=== PATIENT | female | born 1980 | race Hispanic/Latino ===

== ENCOUNTER → 2016-11-10 | Outpatient (CLI) | payer MEDICAID ==
[~2016-11-10] MED LIST: AC500T PO; AGM875T PO; AZIT-21 PO; CIPR500T78 PO; CLIN-62 PO; DICY20TA10 PO; FRS325T PO; HYDR-1231 PO; HYDR480S10 GT; HYOS0.1216 PO; IBUP-30 PO; IBUP800T26 PO; Ibuprofen PO; METF500T4 PO; METR500T PO; MULT-974 PO; ONDA-42 SL; OSLT75C PO; PNT40TEC PO; POLY17PO23 GT; TRM50T PO
--- NOTE | 2016-11-10 13:25 | Diagnostic Imaging Report ---
First trimester OB ultrasound. INDICATION: Dating. FINDINGS: There is a normal-appearing single intrauterine . An embryo is seen with cardiac activity at 156 beats per minute. The crown-rump length is at 12 weeks and 4 days. JOHNATHAN is 05/21/17. IMPRESSION: Live single intrauterine . Dictated by: Dictated on workstation # [id number]
== END ==
LOC: RAD 11:54
PROVIDERS: ATTEND Family Medicine
DX: Z36.3 Encounter for antenatal screening for malformations (principal); Z3A.12 12 weeks gestation of pregnancy
CPT/HCPCS: 76801

== ENCOUNTER → 2016-12-29 | Outpatient (CLI) | payer MEDICAID ==
--- NOTE | 2016-12-29 15:19 | Diagnostic Imaging Report ---
INDICATION: survey. TECHNIQUE: Multiple real-time grayscale images were obtained over the gravid uterus. COMPARISON: 11/10/2016 FINDINGS: heart rate is 140 beats per minute. The placenta is posterior. No placenta previa. The cervix is 5.1 cm in length and is closed. Adequate amniotic fluid is seen. The posterior fossa, size of the ventricles, the stomach, the urinary bladder, two umbilical arteries, and the spine are demonstrated with no definite abnormality. No hydronephrosis or cystic renal masses identified. The four-chamber view and cord insertion are not well evaluated due to position. The maternal adnexa are obscured. Biometrical measurements are as follows: Biparietal 4.39 cm, age 19 weeks 2 days. Head circumference 16.06 cm, age 19 weeks 0 days. Abdominal circumference 13.88 cm, age 19 weeks 2 days. Femur length 2.92 cm, age 19 weeks 0 days. Sonographic estimate age: 19 weeks 1 days. Sonographic estimated date of delivery: 05/24/2017. Estimated Weight: 275 gm (+/- 40 gm). LMP percentile: 22%. heart rate: 140 beats per minute. number: 1 of 1. IMPRESSION: The four-chamber view and cord insertion are not well seen due to position. Reevaluation with a followup scan within 2 weeks is suggested. Dictated by: Dictated on workstation # [id number]
== END ==
LOC: RAD 12:37
PROVIDERS: ATTEND Obstetrics & Gynecology
DX: O24.112 Pre-existing type 2 diabetes mellitus, in pregnancy, second trimester (principal); Z3A.19 19 weeks gestation of pregnancy
CPT/HCPCS: 76805

== ENCOUNTER 2017-02-03 11:02 | Emergency (ER) | payer MEDICAID ==
[~2017-02-03] VITALS: Ht 160 cm; Wt 72.6 kg
--- OUTSIDE RECORDS SUMMARY | 2017-02-03 11:09 | XMS REPORT ---
Author Author CHEMA CLANCY e[employer] Address Unknown Phone Unavailable Care Team Providers Care Outdoor Studies Professor Name Role Phone CHEMA CLANCY CP Unavailable Allergies No Known Allergies Problems Problem Type Condition Code Onset Dates Condition Status Assessment Breech presentation, antepartum, not applicable or unspecified fetus O32.1XX0 Active Problem Gastro-esophageal reflux disease without esophagitis K21.9 Active Assessment Supervision of with grand multiparity, third trimester O09.43 Active Problem Supervision of with grand multiparity, third trimester O09.43 Active Problem Gestational diabetes mellitus in , unspecified control O24.419 Active Problem Breech presentation, antepartum, not applicable or unspecified fetus O32.1XX0 Active Problem Supervision of high risk , unspecified, third trimester O09.93 Active Problem Supervision of with grand multiparity, second trimester O09.42 Active Problem Anemia complicating , third trimester O99.013 Active Problem Diet controlled gestational diabetes mellitus in third trimester O24.410 Active Medications No Known Medications Results No Known Results Summary Purpose eClinicalWorks Submission
--- OUTSIDE RECORDS SUMMARY | 2017-02-03 11:09 | XMS REPORT ---
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 [address]-56 500 MG Orally- DX- E11.65 twice a day Oct 16, 2015 1 tablets Results No Known Results Summary Purpose eClinicalWorks Submission
--- OUTSIDE RECORDS SUMMARY | 2017-02-03 11:09 | XMS REPORT ---
Author CHEMA Lopez [facility] eClinicalWorks Address Unknown Phone Unavailable Care Team Providers Care Shingle Shearing Machine Operator Name Role Phone CHEMA CLANCY CP Unavailable Allergies No Known Allergies Problems Problem Type Condition Code Onset Dates Condition Status Assessment screening for streptococcus B Z36 Active Assessment Supervision of with grand multiparity, third trimester O09.43 Active Assessment Supervision of high risk , unspecified, third trimester O09.93 Active Assessment 35 weeks gestation of Z3A.35 Active Assessment Diet controlled gestational diabetes mellitus in third trimester O24.410 Active Problem Gestational diabetes mellitus in , unspecified control O24.419 Active Problem Anemia complicating , third trimester O99.013 Active Problem Supervision of with grand multiparity, third trimester O09.43 Active Problem Supervision of with grand multiparity, second trimester O09.42 Active Problem Gastro-esophageal reflux disease without esophagitis K21.9 Active Problem Diet controlled gestational diabetes mellitus in third trimester O24.410 Active Problem Supervision of high risk , unspecified, third trimester O09.93 Active Medications No Known Medications Procedures Procedure Coding System Code Date DETECT AGNT MULT, DNA, AMPLI CPT-4 82791 Jan 29, 2015 Office Visit, Est Pt., Level 3 CPT-4 16403 Jan 29, 2015 URINE-NO MICRO CPT-4 16207 Jan 29, 2015 Vital Signs Date/Time: Jan 29, 2015 Temperature 97.7 F Weight 182.7 lbs Height 63 in BMI 32.364 Index Blood Pressure Diastolic 84 mmHg Blood Pressure Systolic 130 mmHg Cardiac Monitoring Heart Rate 82 bpm Results Name Result Date Reference Range Unit Abnormality Flag UA OB DIP (IN HOUSE) ----Glucose Trace 20150129 ----Protein 2+ 20150129 CULTURE, GROUP B STREP (VAGINAL) ----Strep Gp B Culture Negative 20150129 Negative Summary Purpose eClinicalWorks Submission
--- OUTSIDE RECORDS SUMMARY | 2017-02-03 11:09 | XMS REPORT ---
Author Author TAHIRA VALDEZ Organization [employer]Works Address Unknown Phone Unavailable Care Team Providers Care Technical Buyer Name Role Phone TAHIRA VALDEZ CP Unavailable [...] Instructions Start Date End Date Status Dosage Lisinopril [facility] [address]-39 2.5 MG Orally Once a day Dec 17, 2015 1 tablet Results No Known Results Summary Purpose eClinicalWorks Submission
--- OUTSIDE RECORDS SUMMARY | 2017-02-03 11:09 | XMS REPORT ---
Author Author TAHIRA VALDEZ [facility] eClinicalWorks Address Unknown Phone Unavailable Care Team Providers Care Exhibition Designer Name Role Phone TAHIRA VALDEZ CP Unavailable Allergies, Adverse Reactions, Alerts Substance Reaction Event Type N.K.D.A. 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 Problem Type 2 diabetes mellitus without complication, without long-term current use of insulin E11.9 Active Assessment Type 2 diabetes mellitus without complication, without long-term current use of insulin E11.9 Active Assessment Hyperlipidemia LDL goal <70 E78.5 Active Problem History of gestational diabetes Z86.32 Active Problem Gastro-esophageal reflux disease without esophagitis K21.9 Active Medications Medication Code System Code Instructions Start Date End Date Status Dosage Pravastatin Sodium [facility] [address]-42 40 mg Orally Once a day June 11, 2015 1 [place] [address]-08 500 MG Orally- DX- E11.65 twice a day Oct 16, 2015 1 tablets Blood Glucose Test Strip NDC 0 Test Strips DX- E11.65- One Touch twice daily Oct 16, 2015 test blood sugar Blood Glucose Meter NDC 0 glucometer DX: E11.65- One Touch 2 times a day Nov 30, 2014 test blood sugar Procedures Procedure Coding System Code Date MICROALBUMIN, SEMIQUANT CPT-4 58005 Dec 11, 2015 Office Visit, Est Pt., Level 4 CPT-4 59006 Dec 11, 2015 GLYCATED HEMOGLOBIN TEST CPT-4 98892 Dec 11, 2015 Vital Signs Date/Time: Dec 11, 2015 Cardiac Monitoring Heart Rate 88 bpm Weight 147.1 lbs Height 63 in BMI 26.05 Index Blood Pressure Diastolic 82 mmHg Blood Pressure Systolic 124 mmHg Results Name Result Date Reference Range Unit Abnormality Flag A1C (IN HOUSE) ----A1C IN HOUSE 6.4 20151211 4.3 - 5.6 % ----Previous A1c 7.5 20151211 ----Lot [id number] ----Exp date 20151211 Summary Purpose eClinicalWorks Submission
--- OUTSIDE RECORDS SUMMARY | 2017-02-03 11:09 | XMS REPORT ---
Author CHEMA Lopez [facility] eClinicalWorks Address Unknown Phone Unavailable Care Team Providers Care Saute Chef Name Role Phone CHEMA CLANCY CP Unavailable Allergies No Known Allergies Problems Problem Type Condition Code Onset Dates Condition Status Problem Anemia complicating , third trimester O99.013 Active Problem Supervision of with grand multiparity, second trimester O09.42 Active Problem Gestational diabetes mellitus in , unspecified control O24.419 Active Problem Gastro-esophageal reflux disease without esophagitis K21.9 Active Medications Medication Code System Code Instructions Start Date End Date Status Dosage Ferrous Sulfate [facility] [address]-63 325 (65 Fe) MG Orally Once a day Nov 15, 2014 1 tablet Results No Known Results Summary Purpose eClinicalWorks Submission
--- OUTSIDE RECORDS SUMMARY | 2017-02-03 11:09 | XMS REPORT ---
Author CHEMA Lopez [facility] eClinicalWorks Address Unknown Phone Unavailable Care Team Providers Care Maintenance Department Technician Name Role Phone CHEMA CLANCY CP Unavailable Allergies No Known Allergies Problems Problem Type Condition Code Onset Dates Condition Status Problem Anemia complicating , third trimester O99.013 Active Problem Supervision of with grand multiparity, second trimester O09.42 Active Problem Gestational diabetes mellitus in , unspecified control O24.419 Active Problem Gastro-esophageal reflux disease without esophagitis K21.9 Active Medications No Known Medications Results No Known Results Summary Purpose eClinicalWorks Submission
--- OUTSIDE RECORDS SUMMARY | 2017-02-03 11:09 | XMS REPORT ---
Author CHEMA Lopez [facility] eClinicalWorks Address Unknown Phone Unavailable Care Team Providers Care Fashion Designer Name Role Phone CHEMA CLANCY CP Unavailable Allergies No Known Allergies Problems Problem Type Condition Code Onset Dates Condition Status Assessment Supervision of with grand multiparity, third trimester O09.43 Active Assessment 31 weeks gestation of Z3A.31 Active Assessment Encounter for immunization Z23 Active Assessment Diet controlled gestational diabetes mellitus [...] Medications Procedures Procedure Coding System Code Date Office Visit, Est Pt., Level 3 CPT-4 84321 Jan 01, 2015 TDAP (BOOSTRIX) CPT-4 88153 Jan 01, 2015 URINE-NO MICRO CPT-4 99116 Jan 01, 2015 SINGLE IMMUNIZATION ADMIN CPT-4 74605 Jan 01, 2015 Vital Signs Date/Time: Jan 01, 2015 Temperature 97.7 F Weight 177.2 lbs Height 63 in BMI 31.39 Index Blood Pressure Diastolic 82 mmHg Blood Pressure Systolic 120 mmHg Cardiac Monitoring Heart Rate 82 bpm Results Name Result Date Reference Range Unit Abnormality Flag UA OB DIP (IN HOUSE) ----Glucose negative 20150101 ----Protein trace 20150101 Immunizations Vaccine Administration Date TDAP (BOOSTRIX) Jan 01, 2015 Summary Purpose eClinicalWorks Submission
--- OUTSIDE RECORDS SUMMARY | 2017-02-03 11:09 | XMS REPORT | Clinical Summary ---
Author Author [facility] Organization [facility] Address Unknown Phone Unavailable Care Team Providers Care Harvest Worker Fruit Name Role Phone PCP Unavailable Source Comments Some departments are not documenting in the electronic medical record. If you do not see the information that you expected, contact Release of Information in the Health Information Management department at [phone] for further assistance in locating additional records.[facility] Allergies No Known Allergies Current Medications No known medications Active Problems Problem Noted Date Normal 09/21/2008 Family History Medical History Relation Name Comments Diabetes Mother Relation Name Status Comments Mother Social History Tobacco Use Types Packs/Day Years Used Date Never Smoker Smokeless Tobacco: Never Used Alcohol Use Drinks/Week oz/Week Comments No Currently Estimated Date of Delivery Comments Yes Sex Assigned at Date Recorded Not on file Last Filed Vital Signs Vital Sign Reading Time Taken Blood Pressure 125/58 09/16/2011 2:08 AM CDT Pulse 80 01/11/2010 12:32 AM ASSEMBLY PERSON Temperature 36.6 C (97.8 F) 01/11/2010 12:32 AM ASSEMBLY PERSON Respiratory Rate - - Oxygen Saturation 98% 09/16/2011 2:08 AM CDT Inhaled Oxygen - - Concentration Weight 69.4 kg (153 lb) 01/07/2010 12:09 AM ASSEMBLY PERSON Height 162.6 cm (5' 4") 09/19/2008 9:50 PM CDT Body Mass Index 26.26 01/07/2010 12:09 AM ASSEMBLY PERSON Plan of Treatment Health Maintenance Due Date Last Done Comments PHYSICAL (COMPREHENSIVE) 1987 EXAM PERTUSSIS VACCINE 1991 TETANUS VACCINE 1997 CERVICAL CANCER SCREENING 2010 INFLUENZA VACCINE 09/09/2016 Results Not on filefrom Last 3 Months
--- OUTSIDE RECORDS SUMMARY | 2017-02-03 11:10 | XMS REPORT ---
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 854305979 Problem Gastro-esophageal reflux disease without esophagitis K21.9 Active 261834592 ALLERGIES No Information SOCIAL HISTORY Never Assessed PLAN OF CARE VITAL SIGNS MEDICATIONS Unknown Medications RESULTS No Results PROCEDURES Procedure Date Ordered Result Body Site TDAP (BOOSTRIX) 2016 SINGLE IMMUNIZATION ADMIN 2016 IMMUNIZATIONS Vaccine Route Administration Date Status TDAP (BOOSTRIX) IM Intramuscular 2016 Administered MEDICAL (GENERAL) HISTORY Type Description Date Medical History Type 2 diabetes mellitus with hyperglycemia Medical History History of gestational diabetes Medical History Gastro-esophageal reflux disease without esophagitis Medical History Castlemans disease 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
--- OUTSIDE RECORDS SUMMARY | 2017-02-03 11:10 | XMS REPORT ---
Author Author TAHIRA VALDEZ [facility] Address [address] [place] [address] Care Team Providers Care Insurance Verification Representative Name Role Phone TAHIRA VALDEZ Unavailable PROBLEMS Type Condition ICD9-CM Code [id number] Code Onset Dates Condition Status SNOMED Code Problem Hyperlipidemia LDL goal <70 E78.5 Active 90231891 Problem Type 2 diabetes mellitus without complication, without long-term current use of insulin E11.9 Active 413964150 Problem Gastro-esophageal reflux disease without esophagitis K21.9 Active 028368751 Problem History of gestational diabetes Z86.32 Active 546186141 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
--- OUTSIDE RECORDS SUMMARY | 2017-02-03 11:10 | XMS REPORT ---
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
--- OUTSIDE RECORDS SUMMARY | 2017-02-03 11:10 | XMS REPORT ---
Author Author TAHIRA VALDEZ Organization eClinicalWorks Address Unknown Phone Unavailable Care Team Providers Care Economic Analysis Director Name Role Phone TAHIRA VALDEZ CP Unavailable [...] esophagitis K21.9 Active Medications No Known Medications Procedures Procedure Coding System Code Date VENIPUNCT, ROUTINE* CPT-4 03267 Dec 14, 2015 [facility] CPT-4 NOBLL Dec 14, 2015 Results Name Result Date Reference Range Unit Abnormality Flag ROUTINE VENIPUNCTURE Summary Purpose eClinicalWorks Submission
--- OUTSIDE RECORDS SUMMARY | 2017-02-03 11:10 | XMS REPORT ---
Author CHEMA Lopez [facility] eClinicalWorks Address Unknown Phone Unavailable Care Team Providers Care Template Clerk Name Role Phone CHEMA CLANCY CP Unavailable [...] Instructions Start Date End Date Status Dosage Blood Glucose Meter NDC 0 glucometer 4 times a day- FBS and 2 hr pp each meal Nov 30, 2014 test blood sugar Results No Known Results Summary Purpose eClinicalWorks Submission
--- OUTSIDE RECORDS SUMMARY | 2017-02-03 11:10 | XMS REPORT ---
Author CHEMA Lopez [facility] eClinicalWorks Address Unknown Phone Unavailable Care Team Providers Care Contracting Officer Name Role Phone CHEMA CLANCY CP Unavailable [...]
--- OUTSIDE RECORDS SUMMARY | 2017-02-03 11:10 | XMS REPORT ---
Author CHEMA Lopez [facility] eClinicalWorks Address Unknown Phone Unavailable Care Team Providers Care Gas Leak Inspector Name Role Phone CHEMA CLANCY CP Unavailable Allergies No Known Allergies Problems Problem Type Condition Code Onset Dates Condition Status Problem Anemia complicating , third trimester O99.013 Active Problem Supervision of with grand multiparity, second trimester O09.42 Active Problem Gestational diabetes mellitus in , unspecified control O24.419 Active Assessment Anemia complicating , third trimester O99.013 Active Problem Gastro-esophageal reflux disease without esophagitis K21.9 Active Assessment Gestational diabetes mellitus in , unspecified control O24.419 Active Medications No Known Medications Results No Known Results Summary Purpose eClinicalWorks Submission
--- OUTSIDE RECORDS SUMMARY | 2017-02-03 11:10 | XMS REPORT ---
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 839017588 Problem Gastro-esophageal reflux disease without esophagitis K21.9 Active 500267038 ALLERGIES No Information SOCIAL HISTORY Never Assessed PLAN OF CARE VITAL SIGNS MEDICATIONS Medication Instructions Dosage Frequency Start Date End Date Duration Status MetFORMIN HCl ER 500 mg Orally- DX- E11.65 twice a day 2 tablets 12h 06 Oct Active RESULTS No Results PROCEDURES No Known procedures IMMUNIZATIONS No Known Immunizations MEDICAL (GENERAL) HISTORY Type Description Date Medical History Type 2 diabetes mellitus with hyperglycemia Medical History History of gestational diabetes Medical History Gastro-esophageal reflux disease without esophagitis Medical History Castlemans disease 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
--- OUTSIDE RECORDS SUMMARY | 2017-02-03 11:10 | XMS REPORT ---
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
--- OUTSIDE RECORDS SUMMARY | 2017-02-03 11:10 | XMS REPORT ---
Author Author ERICA TORREZ eClinicalWorks Address Unknown Phone Unavailable Care Team Providers Care Auto Hauler Name Role Phone ERICA TORREZ CP Unavailable Allergies, Adverse Reactions, Alerts Substance Reaction Event Type N.K.D.A. 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 Assessment Type 2 diabetes mellitus with hyperglycemia E11.65 Active Problem Gastro-esophageal reflux disease without esophagitis K21.9 Active Assessment History of gestational diabetes Z86.32 Active Medications Medication Code System Code Instructions Start Date End Date Status Dosage MetFORMIN HCl ER [facility] [address]-51 500 MG Orally Once a day June 07, 2015 1 tablet with evening meal Blood Glucose Meter NDC 0 glucometer 4 times a day- FBS and 2 hr pp each meal Nov 30, 2014 test blood sugar Procedures Procedure Coding System Code Date LAB NOT BILLED BY [facility] CPT-4 NOBLL June 07, 2015 Office Visit, Est Pt., Level 3 CPT-4 29406 June 07, 2015 GLYCATED HEMOGLOBIN TEST CPT-4 85535 June 07, 2015 VENIPUNCT, ROUTINE* CPT-4 06329 June 07, 2015 Vital Signs Date/Time: June 07, 2015 Temperature 97.8 F Weight 166.0 lbs Height 63 in BMI 29.40 Index Blood Pressure Diastolic 86 mmHg Blood Pressure Systolic 121 mmHg Cardiac Monitoring Heart Rate 88 bpm Results No Known Results Summary Purpose eClinicalWorks Submission
--- OUTSIDE RECORDS SUMMARY | 2017-02-03 11:10 | XMS REPORT ---
Author Author TAHIRA VALDEZ [facility] eClinicalWorks Address Unknown Phone Unavailable Care Team Providers Care Youth Agent Name Role Phone TAHIRA VALDEZ CP Unavailable Allergies, Adverse Reactions, Alerts Substance Reaction Event Type N.K.D.A. 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 [address] 28-0.8 MG Orally not defined Diflucan [facility] [address]-34 100 MG Orally Once a day Sep 18, 2015 Sep 25, 2015 1 tablet Blood Glucose Meter NDC 0 glucometer 4 times a day- FBS and 2 hr pp each meal Nov 30, 2014 test blood sugar Procedures Procedure Coding System Code Date No Charge CPT-4 70982 Sep 18, 2015 OBANDO VAG, DNA, DIR PROBE CPT-4 97471 Sep 18, 2015 URINE TEST CPT-4 99516 Sep 18, 2015 Office Visit, Est Pt., Level 4 CPT-4 16456 Sep 18, 2015 [facility] CPT-4 NOBLL Sep 18, 2015 Vital Signs Date/Time: Sep 18, 2015 Cardiac Monitoring Heart Rate 94 bpm Weight 155.6 lbs Height 63 in BMI 27.56 Index Blood Pressure Diastolic 88 mmHg Blood Pressure Systolic 130 mmHg Results No Known Results Summary Purpose eClinicalWorks Submission
--- OUTSIDE RECORDS SUMMARY | 2017-02-03 11:10 | XMS REPORT ---
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
--- OUTSIDE RECORDS SUMMARY | 2017-02-03 11:10 | XMS REPORT ---
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 Problem Gastro-esophageal reflux disease without esophagitis K21.9 Active Assessment Elevated ALT measurement R74.0 Active Medications No Known Medications Procedures Procedure Coding System Code Date VENIPUNCT, ROUTINE* CPT-4 29940 June 11, 2015 [facility] CPT-4 NOBLL June 11, 2015 Results Name Result Date Reference Range Unit Abnormality Flag ROUTINE VENIPUNCTURE HEPATITIS PROFILE ----Hep C Virus Ab <0.1 [id number] 0.0-0.9 s/co ratio ----HBsAg Screen Negative [id number] Negative ----Hep B Core Ab, IgM Negative [id number] Negative ----Hep A Ab, IgM Negative [id number] Negative Summary Purpose eClinicalWorks Submission
--- OUTSIDE RECORDS SUMMARY | 2017-02-03 11:10 | XMS REPORT ---
Author CHEMA Lopez eClinicalWorks Address Unknown Phone Unavailable Care Team Providers Care Kennel Supervisor Name Role Phone CHEMA CLANCY CP Unavailable Allergies, Adverse Reactions, Alerts Substance Reaction Event Type N.K.D.A. Info Not Available Non Drug Allergy Problems Problem Type Condition Code Onset Dates Condition Status Assessment 28 weeks gestation of Z3A.28 Active Assessment Diet controlled gestational diabetes mellitus in third trimester O24.410 Active Assessment Supervision of high risk , unspecified, third trimester O09.93 Active Problem Anemia complicating , third trimester O99.013 Active Problem Diet controlled gestational diabetes mellitus in third trimester O24.410 Active Problem Gestational diabetes mellitus in , unspecified control O24.419 Active Problem Gastro-esophageal reflux disease without esophagitis K21.9 Active Assessment Supervision of with grand multiparity, second trimester O09.42 Active Problem Supervision of high risk , unspecified, third trimester O09.93 Active Problem Supervision of with grand multiparity, second trimester O09.42 Active Medications No Known Medications Procedures Procedure Coding System Code Date Office Visit, Est Pt., Level 3 CPT-4 71275 Dec 11, 2014 URINE-NO MICRO CPT-4 40880 Dec 11, 2014 Vital Signs Date/Time: Dec 11, 2014 Temperature 98.2 F Weight 174.5 lbs Height 63 in BMI 30.911 Index Blood Pressure Diastolic 78 mmHg Blood Pressure Systolic 122 mmHg Cardiac Monitoring Heart Rate 88 bpm Results Name Result Date Reference Range Unit Abnormality Flag UA OB DIP (IN HOUSE) Summary Purpose eClinicalWorks Submission
--- OUTSIDE RECORDS SUMMARY | 2017-02-03 11:10 | XMS REPORT ---
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
--- OUTSIDE RECORDS SUMMARY | 2017-02-03 11:10 | XMS REPORT ---
Author CHEMA Lopez [facility] eClinicalWorks Address Unknown Phone Unavailable Care Team Providers Care Airport Ramp Attendant Name Role Phone CHEMA CLANCY CP Unavailable Allergies No Known Allergies Problems Problem Type Condition Code Onset Dates Condition Status Problem Gastro-esophageal reflux disease without esophagitis K21.9 Active Assessment Supervision of with grand multiparity, second trimester O09.42 Active Problem Supervision of with grand multiparity, second trimester O09.42 Active Assessment with 24 completed weeks gestation Z3A.24 Active Assessment Shortness of breath R06.02 Active Assessment Encounter for immunization Z23 Active Assessment Gastro-esophageal reflux disease without esophagitis K21.9 Active Medications Medication Code System Code Instructions Start Date End Date Status Dosage One Daily [facility] [address]95 27-0.8 MG Orally not defined Prilosec [facility] [address]-59 40 MG Orally Once a day Nov 13, 2014 1 capsule Procedures Procedure Coding System Code Date MEASURE BLOOD OXYGEN LEVEL CPT-4 29209 Nov 13, 2014 FLUARIX QUAD (3 & UP)-GSK-2014 CPT-4 33015 Nov 13, 2014 URINE-NO MICRO CPT-4 11736 Nov 13, 2014 Office Visit, Est Pt., Level 3 CPT-4 33277 Nov 13, 2014 GLUCOSE TEST CPT-4 85704 Nov 13, 2014 SINGLE IMMUNIZATION ADMIN CPT-4 66633 Nov 13, 2014 VENIPUNCT, ROUTINE* CPT-4 21964 Nov 13, 2014 COMPLETE CBC W/AUTO DIFF WBC CPT-4 54654 Nov 13, 2014 Vital Signs Date/Time: Nov 13, 2014 Temperature 98.2 F Weight 174.0 lbs Height 63 in Oximetry 100 % Blood Pressure Diastolic 88 mmHg Blood Pressure Systolic 126 mmHg Cardiac Monitoring Heart Rate 102 bpm BMI 30.823 Index Results Name Result Date Reference Range Unit Abnormality Flag ROUTINE VENIPUNCTURE UA OB DIP (IN HOUSE) Immunizations Vaccine Administration Date FLUARIX QUAD (3 & UP)-GSK-2014Nov 13, 2014 Summary Purpose eClinicalWorks Submission
--- OUTSIDE RECORDS SUMMARY | 2017-02-03 11:10 | XMS REPORT ---
Author Author ERICA TORREZ [facility] eClinicalWorks Address Unknown Phone Unavailable Care Team Providers Care Bill Adjuster Name Role Phone ERICA TORREZ Unavailable Allergies [...]
--- OUTSIDE RECORDS SUMMARY | 2017-02-03 11:11 | XMS REPORT | Continuity of Care Document ---
Author Author [facility] Address Unknown Phone Unavailable Allergies Active Description Code Type Severity Reaction Onset Reported/Identified Relationship to Patient Clinical Status Yes No Known Drug Allergies [id number] Drug Allergy Unknown N/A 09/30/2015 Medications There is no data. Problems Date Dx Coded Attending Type Code Diagnosis Diagnosed By 01/25/2013 MICHAELA LIU APRN Ot 640.03 THREATEN ABORT-ANTEPART 01/25/2013 MICHAELA LIU APRN Ot 789.00 ABDOMINAL PAIN, UNSPECIFIED SITE 03/06/2013 CHEMA CLANCY DO Ot 038.9 SEPTICEMIA NOS 03/06/2013 CHEMA CLANCY DO Ot 276.1 HYPOSMOLALITY 03/06/2013 CHEMA CLANCY DO Ot 276.8 HYPOPOTASSEMIA 03/06/2013 CHEMA CLANCY DO Ot 487.0 INFLUENZA WITH PNEUMONIA 03/06/2013 CHEMA CLANCY DO Ot 634.02 SPON ABOR W PEL INF-COMP 03/06/2013 CHEMA CLANCY DO Ot 641.13 PLACEN PREV HEM-ANTEPART 03/06/2013 CHEMA CLANCY DO Ot 646.83 PREG COMPL NEC-ANTEPART 03/06/2013 CHEMA CLANCY DO Ot 659.33 SEPTICEM IN LABOR-ANTEPA 03/06/2013 CHEMA CLANCY DO Ot 995.91 SEPSIS 03/12/2013 ANNE SUTHERLAND, NEELAM Swenson Ot 789.09 ABDOMINAL PAIN, OTHER SPECIFIED SITE 03/31/2013 VALENTINO MILLER APRN V72.41 TEST NEGATIVE RESULT 03/31/2013 FARZANA ANDERSON APRN V72.41 TEST NEGATIVE RESULT 03/31/2013 FARZAAN ANDERSON APRN V72.41 TEST NEGATIVE RESULT 03/31/2013 CATHERINE SIU APRN V72.41 TEST NEGATIVE RESULT 05/31/2013 MONICA REFINERY OPERATOR ALKYLATION, FARZANA R 793.11 SOLITARY PULMONARY NODULE 05/31/2013 FARZANA ANDERSON APRN R 793.11 SOLITARY PULMONARY NODULE 05/31/2013 CATHERINE SIU APRN N 793.11 SOLITARY PULMONARY NODULE 06/02/2013 FARZANA ANDERSON APRN R 786.52 CHEST WALL PAIN 06/02/2013 FARZANA ANDERSON APRN R 786.52 CHEST WALL PAIN 06/02/2013 CATHERINE SIU APRN N 786.52 CHEST WALL PAIN 06/15/2013 ANNE SUTHERLAND, NEELAM Swenson Ot 786.05 SHORTNESS OF BREATH 06/15/2013 ANNE SUTHERLAND, NEELAM Swenson Ot 787.02 NAUSEA ALONE 06/15/2013 ANNE SUTHERLAND, NEELAM Swenson Ot 789.00 ABDOMINAL PAIN, UNSPECIFIED SITE 09/12/2013 EMI SWANSON DO Ot 490 BRONCHITIS NOS 09/12/2013 EMI SWANSON DO Ot 786.2 COUGH 09/29/2013 EMI GUAN DO Ot 038.9 SEPTICEMIA NOS 09/29/2013 EMI GUAN DO Ot 041.09 BACTERIAL INFECTION DUE TO OTHER STREPTO 09/29/2013 EMI GUAN DO Ot 280.0 CHR BLOOD LOSS ANEMIA 09/29/2013 EMI GUAN DO Ot 599.0 URIN TRACT INFECTION NOS 09/29/2013 EMI GUAN DO Ot 626.2 EXCESSIVE MENSTRUATION 09/29/2013 EMI GUAN DO Ot 780.60 FEVER, UNSPECIFIED 09/29/2013 EMI GUAN DO Ot 785.2 CARDIAC MURMURS NEC 09/29/2013 EMI GUAN DO Ot 785.6 ENLARGEMENT LYMPH NODES 09/29/2013 EMI GUAN DO Ot 786.2 COUGH 09/29/2013 EMI GUAN DO Ot 786.52 PAINFUL RESPIRATION 09/29/2013 EMI GUAN DO Ot 995.91 SEPSIS 09/29/2013 EMI GUAN DO Ot V15.82 HISTORY OF TOBACCO USE 11/09/2013 SUE GARCIA Ot 516.0 PUL ALVEOLAR PROTEINOSIS 01/02/2014 FARZANA ANDERSON APRN R 790.29 HYPERGLYCEMIA 01/02/2014 CATHERINE SIU APRN N 790.29 HYPERGLYCEMIA 01/10/2014 CATHERINE SIU APRN N 784.1 THROAT PAIN 01/10/2014 NEHEMIAH CONDE APRN, CATHERINE N 786.2 COUGH 03/15/2014 SUE GARCIA N Ot 785.6 ENLARGEMENT LYMPH NODES 03/16/2014 HARJEET DEE ENGINEERING INSPECTOR Ot 785.6 04/10/2014 Ot 789.01 ABDOMINAL PAIN, RIGHT UPPER QUADRANT 05/01/2014 JOSE SUE N Ot 785.6 10/13/2014 FOREST ANDERSONINA R REFINERY OPERATOR ALKYLATION Ot 571.8 10/13/2014 MONICA FARZANA R REFINERY OPERATOR ALKYLATION Ot 786.52 10/13/2014 MONICA FARZANA R REFINERY OPERATOR ALKYLATION Ot 786.6 10/13/2014 MONICA FARZANA R REFINERY OPERATOR ALKYLATION Ot 793.11 10/13/2014 JOSESUE MAYO N Ot 785.6 10/13/2014 JOSE SUE N Ot 789.1 10/13/2014 EMI GUAN DO Ot 280.9 10/13/2014 SUE GARCIA N Ot 785.6 10/13/2014 HARJEET DEE ENGINEERING INSPECTOR Ot 785.6 11/20/2014 FOREST ANDERSONINA R REFINERY OPERATOR ALKYLATION Ot 571.8 11/20/2014 FARZANA ANDERSON R REFINERY OPERATOR ALKYLATION Ot 786.52 11/20/2014 FARZANA ANDERSON R REFINERY OPERATOR ALKYLATION Ot 786.6 11/20/2014 FARZANA ANDERSON R REFINERY OPERATOR ALKYLATION Ot 793.11 11/20/2014 SUE GARCIA N Ot 785.6 11/20/2014 SUE GARCIA N Ot 789.1 11/20/2014 EMI GUAN DO Ot 280.9 11/20/2014 JOSE BOBVADIM N Ot 785.6 11/20/2014 HARJEET DEE ENGINEERING INSPECTOR Ot 785.6 11/20/2014 VALENTINO MILLER REFINERY OPERATOR ALKYLATION Ot V23.3 12/27/2014 CHEMA CLANCY DO Ot O09.42 12/27/2014 CLANCY CHEMA KNIGHT Ot Z3A.00 09/30/2015 FARZANA ANDERSON R REFINERY OPERATOR ALKYLATION Ot 571.8 CHRONIC LIVER DIS NEC 09/30/2015 FARZANA ANDERSON R REFINERY OPERATOR ALKYLATION Ot 786.52 PAINFUL RESPIRATION 09/30/2015 FARZANA ANDERSON REFINERY OPERATOR ALKYLATION Ot 786.6 CHEST SWELLING/MASS/LUMP 09/30/2015 FARZANA ANDERSON REFINERY OPERATOR ALKYLATION Ot 793.11 SOLITARY PULMONARY NODULE 09/30/2015 JOSESUE Ot 785.6 ENLARGEMENT LYMPH NODES 09/30/2015 SUE GARCIA Ot 789.1 HEPATOMEGALY 09/30/2015 EMI GUAN DO Ot 280.9 IRON DEFIC ANEMIA NOS 09/30/2015 SUE GARCIA Ot 785.6 ENLARGEMENT LYMPH NODES 09/30/2015 HARJEET DEE ENGINEERING INSPECTOR Ot 785.6 ENLARGEMENT LYMPH NODES 09/30/2015 VALENTINO MILLER REFINERY OPERATOR ALKYLATION Ot V23.3 GRAND MULTIPARITY 09/30/2015 CHEAM CLANCY DO Ot O09.42 SUPRVSN OF W GRAND MULTIPARITY 09/30/2015 CHEMA CLANCY DO Ot Z3A.00 WEEKS OF GESTATION OF NOT SPEC 09/30/2015 HARJEET DEE ENGINEERING INSPECTOR Ot 785.6 ENLARGEMENT LYMPH NODES 09/30/2015 HUGO GUERRERO MD Ot E11.9 TYPE 2 DIABETES MELLITUS WITHOUT COMPLIC 09/30/2015 HUGO GUERRERO MD Ot R10.11 RIGHT UPPER QUADRANT PAIN 09/30/2015 HUGO GUERRERO MD Ot R10.31 RIGHT LOWER QUADRANT PAIN 09/30/2015 HUGO GUERRERO MD Ot R10.9 UNSPECIFIED ABDOMINAL PAIN 09/30/2015 HUGO GUERRERO MD Ot Z79.899 OTHER CUSTODIAL (CURRENT) DRUG THERAPY 10/02/2015 HUGO GUERRERO MD Ot E11.9 TYPE 2 DIABETES MELLITUS WITHOUT COMPLIC 10/02/2015 HUGO GUERRERO MD Ot R10.11 RIGHT UPPER QUADRANT PAIN 10/02/2015 HUGO GUERRERO MD Ot R10.31 RIGHT LOWER QUADRANT PAIN 10/02/2015 HUGO GUERRERO MD Ot R10.9 UNSPECIFIED ABDOMINAL PAIN 10/02/2015 HUGO GUERRERO MD Ot Z79.899 OTHER PERINATAL INSTRUCTOR (CURRENT) DRUG THERAPY 12/02/2016 SUZANNE DANIEL MD Ot Z36.3 ENCOUNTER FOR SCREENING FOR MA 12/02/2016 GAULT MD, SUZANNE R Ot Z3A.12 12 WEEKS GESTATION OF 01/04/2017 ASHLYN BOSCH DO Ot O24.112 PRE-EXISTING TYPE 2 DIABETES, IN PREGNAN 01/04/2017 ASHLYN BOSCH DO Ot Z3A.19 19 WEEKS GESTATION OF 01/15/2017 ASHLYN BOSCH DO Ot O24.112 PRE-EXISTING TYPE 2 DIABETES, IN PREGNAN 01/15/2017 ASHLYN BOSCH DO Ot Z3A.19 19 WEEKS GESTATION OF Procedures Code Description [place] [address] TEST, URINE (IN- HOUSE) 03/31/2013 17499 ROUTINE VENIPUNCTURE 06/07/2013 GENERAL S JOHN MCKINNON 06/07/2013 MEDICAL O SUE GARCIA 06/07/2013 72483 LDH 06/07/2013 16615 HCG QUANTITATIVE 06/07/2013 68364 AFP TUMOR MARKER 06/08/2013 69.09 09/28/2013 28462 ROUTINE VENIPUNCTURE 01/03/2014 94596 GLUCOSE FINGER STICK 01/03/2014 47132 A1C (RML) 01/03/2014 34821 INSULIN LEVEL 01/04/2014 Results Test Result Range Urine beta human chorionic gonadotropin (hCG) measurement - 09/30/15 18:10 Urine beta human chorionic gonadotropin (hCG) measurement NEGATIVE NEGATIVE Capillary blood glucose measurement by glucometer (mass/volume) - 09/30/15 18: 19 Capillary blood glucose measurement by glucometer (mass/volume) 183 mg/dL 70-110 Complete blood count (CBC) with automated white blood cell (WBC) differential - 09/30/15 18:35 Blood leukocytes automated count (number/volume) 6.1 10*3/uL 4.3-11.0 Blood erythrocytes automated count (number/volume) 4.63 10*6/uL 4.35-5.85 Venous blood hemoglobin measurement (mass/volume) 12.8 g/dL 11.5-16.0 Blood hematocrit (volume fraction) 37 % 35-52 Automated erythrocyte mean corpuscular volume 80 [foz_us] 80-99 Automated erythrocyte mean corpuscular hemoglobin (mass per erythrocyte) 28 pg 25-34 Automated erythrocyte mean corpuscular hemoglobin concentration measurement ( mass/volume) 35 g/dL 32-36 Automated erythrocyte distribution width ratio 13.9 % 10.0-14.5 Automated blood platelet count (count/volume) 293 10*3/uL 130-400 Automated blood platelet mean volume measurement 10.0 [foz_us] 7.4-10.4 Automated blood neutrophils/100 leukocytes 65 % 42-75 Automated blood lymphocytes/100 leukocytes 26 % 12-44 Blood monocytes/100 leukocytes 7 % 0-12 Automated blood eosinophils/100 leukocytes 2 % 0-10 Automated blood basophils/100 leukocytes 0 % 0-10 Blood neutrophils automated count (number/volume) 4.0 10*3 1.8-7.8 Blood lymphocytes automated count (number/volume) 1.6 10*3 1.0-4.0 Blood monocytes automated count (number/volume) 0.4 10*3 0.0-1.0 Automated eosinophil count 0.1 10*3/uL 0.0-0.3 Automated blood basophil count (count/volume) 0.0 10*3/uL 0.0-0.1 Comprehensive metabolic panel - 09/30/15 18:35 Serum or plasma sodium measurement (moles/volume) 137 mmol/L 135-145 Serum or plasma potassium measurement (moles/volume) 3.5 mmol/L 3.6-5.0 Serum or plasma chloride measurement (moles/volume) 103 mmol/L 98-107 Carbon dioxide 24 mmol/L 21-32 Serum or plasma anion gap determination (moles/volume) 10 mmol/L 5-14 Serum or plasma urea nitrogen measurement (mass/volume) 13 mg/dL 7-18 Serum or plasma creatinine measurement (mass/volume) 0.79 mg/dL 0.60-1.30 Serum or plasma urea nitrogen/creatinine mass ratio 16 NRG Serum or plasma creatinine measurement with calculation of estimated glomerular filtration rate > NRG Serum or plasma glucose measurement (mass/volume) 187 mg/dL 70-105 Serum or plasma calcium measurement (mass/volume) 9.4 mg/dL 8.5-10.1 Serum or plasma total bilirubin measurement (mass/volume) 0.4 mg/dL 0.1-1.0 Serum or plasma alkaline phosphatase measurement (enzymatic activity/volume) 74 U/L 40-136 Serum or plasma aspartate aminotransferase measurement (enzymatic activity/ volume) 34 U/L 5-34 Serum or plasma alanine aminotransferase measurement (enzymatic activity/volume ) 82 U/L 0-55 Serum or plasma protein measurement (mass/volume) 7.4 g/dL 6.4-8.2 Serum or plasma albumin measurement (mass/volume) 4.3 g/dL 3.2-4.5 Serum or plasma amylase measurement (enzymatic activity/volume) - 09/30/15 18: 35 Serum or plasma amylase measurement (enzymatic activity/volume) 55 U /L 25-125 Lipase - 09/30/15 18:35 Lipase 26 U/L 8-78 Complete urinalysis with reflex to culture - 09/30/15 19:55 Urine color determination YELLOW NRG Urine clarity determination CLEAR NRG Urine pH measurement by test strip 6.5 5-9 Specific gravity of urine by test strip 1.020 1.016- 1.022 Urine protein assay by test strip, semi-quantitative 2+ NEGATIVE Urine glucose detection by automated test strip 1+ NEGATIVE Erythrocytes detection in urine sediment by light microscopy 4+ NEGATIVE Urine ketones detection by automated test strip 1+ NEGATIVE Urine nitrite detection by test strip NEGATIVE NEGATIVE Urine total bilirubin detection by test strip NEGATIVE NEGATIVE Urine urobilinogen measurement by automated test strip (mass/volume) 1 mg/dL NORMAL Urine leukocyte esterase detection by dipstick NEGATIVE NEGATIVE Automated urine sediment erythrocyte count by microscopy (number/high power field) [HPF] NRG Automated urine sediment leukocyte count by microscopy (number/high power field ) RARE NRG Bacteria detection in urine sediment by light microscopy NEGATIVE NRG Squamous epithelial cells detection in urine sediment by light microscopy 2-5 NRG Crystals detection in urine sediment by light microscopy NONE NRG Casts detection in urine sediment by light microscopy NONE NRG Mucus detection in urine sediment by light microscopy LARGE NRG Complete urinalysis with reflex to culture NO NRG Encounters ACCT No. Visit Date/Time Discharge Status Pt. Type Provider Facility Loc./Unit Complaint [id number] 01/10/2014 08:50:00 01/10/2014 23:59:59 CLS Outpatient CATHERINE SIU APRN [id number] 06/07/2013 09:54:00 06/07/2013 23:59:59 CLS Outpatient FARZANA ANDERSON APRN [id number] 05/31/2013 10:15:00 05/31/2013 23:59:59 CLS Outpatient FARZANA ANDERSON APRN [id number] 03/31/2013 13:49:00 03/31/2013 23:59:59 CLS Outpatient VALENTINO MILLER APRN [id number] 12/29/2016 12:37:00 12/29/2016 23:59:59 CLS Outpatient ASHLYN BOSCH DO [facility] RAD O24.112 PRE EXISTING TYPE 2 DIABETES, SUVEY [id number] 11/10/2016 11:54:00 11/10/2016 23:59:59 CLS Outpatient SUZANNE DANIEL MD [facility] RAD Z34.80 [id number] 09/30/2015 18:01:00 09/30/2015 20:27:00 DIS Emergency HUGO GUERRERO MD [facility] ER R SIDE ABD PAIN [id number] 11/20/2014 12:46:00 11/20/2014 23:59:59 CLS Outpatient JULIETH CHEMA KNIGHT [facility] RAD SURVEY [id number] 10/13/2014 13:31:00 10/13/2014 23:59:59 CLS Outpatient VALENTINO MILLER APRN [facility] RAD SURVEY [id number] 03/16/2014 00:26:00 03/16/2014 23:59:59 CLS Preadmit HARJEET DEE ENGINEERING INSPECTOR [facility] ONC [id number] 12/15/2013 08:56:00 03/15/2014 00:01:00 DIS Outpatient SUE GARCIA [facility] ONC [id number] 12/09/2013 08:51:00 12/09/2013 23:59:59 CLS Outpatient SUE GARCIA [facility] RAD CATTLEMAN'S DI [id number] 08/11/2013 13:12:00 11/09/2013 00:01:00 DIS Outpatient SUE GARCIA [facility] ONC [id number] 10/29/2013 10:06:00 10/29/2013 23:59:59 CLS Outpatient EMI GUAN DO [facility] LAB IRON DEFICIENCY ANEMIA [id number] 09/27/2013 02:22:00 09/29/2013 12:57:00 DIS Inpatient EMI GUAN DO [facility] ICU PNEUMONIA,ANEMIA; MENORRHAGIA; ENDOMETRIAL THICKEN [id number] 09/12/2013 07:29:00 09/12/2013 08:40:00 DIS Emergency EMI SWANSON DO [facility] ER COUGH [id number] 08/05/2013 08:09:00 08/05/2013 23:59:59 CLS Outpatient SUE GARCIA [facility] RAD CASTLEMAN'S DISEASE [id number] 06/15/2013 09:17:00 06/15/2013 12:20:00 DIS Emergency ANNE SUTHERLAND, NEELAM Swenson [facility] ER SOA [id number] 06/03/2013 12:31:00 06/03/2013 23:59:59 CLS Outpatient FARZANA ANDERSON APRN [facility] RAD SOLITARY PULMONARY NODULE,CHEST WALL PAIN [id number] 03/11/2013 23:50:00 03/12/2013 01:48:00 DIS Emergency ANNE SUTHERLAND, NEELAM Swenson [facility] ER ABD PAIN;MISCARRIED [id number] 03/04/2013 12:08:00 03/06/2013 14:50:00 DIS Inpatient CHEMA CLANCY DO [facility] 4TH PROBABLE INFLUENZA 13 WKS PREG ELECTROLYTE IMBALAN [id number] 01/25/2013 20:18:00 01/25/2013 21:55:00 DIS Emergency MICHAELA LIU APRN [facility] ER 4 WKS PREG; CRAMPING [id number] 04/10/2014 09:52:00 Document Registration
[2017-02-03] MEDS ORDERED: OSLT75C PO (12:18)
--- NOTE | 2017-02-03 12:20 | ED Cough/URI ---
General Chief Complaint: Cough/Cold/Flu Symptoms Stated Complaint: COUGH,FEVER, 24 WEEKS PREG Nursing Triage Note: COUGH/CONGESTION/FEVER Source: patient Exam Limitations: no limitations History of Present Illness Time seen by provider: 11:30 Initial Comments 36 year old female patient presents to the emergency Department with reports of one day onset of cough, congestion, fever, rhinorrhea, sneezing, sore throat. Patient and 4 children are all being seen for similar symptoms. Patient is 24 weeks . Timing/Duration: yesterday, getting worse Severity/Quality: productive cough (clear productive cough) Prior Episodes/Possible Cause: no prior episodes Modifying Factors: Worse With Coughing Allergies and Home Medications Allergies Coded Allergies: No Known Drug Allergies (Unverified , 09/30/15) Home Medications Dicyclomine HCl 20 Mg Tablet, 20 MG PO ACHS PRN for ABDOMINAL PAIN, #60 Ref 0 Prescribed by: HUGO GUERRERO on 09/30/152024 Metformin HCl 500 Mg Tablet, 500 MG PO TID, #120 Prescribed by: LILIYA ZUNIGA on 09/30/15 1828 Oseltamivir Phosphate 75 Mg Cap, 75 MG PO BID, #10 Ref 0 Prescribed by: KIM ALVARES on 02/03/17 1218 Constitutional: see HPI, chills, No dizziness, fever, malaise EENTM: see HPI, nose congestion, throat pain, No ear discharge, No ear pain, No mouth pain, No mouth swelling, No nose pain, No throat swelling Respiratory: see HPI, cough, No dyspnea on exertion, phlegm, No short of breath , No stridor, No wheezing Cardiovascular: No chest pain, No edema, No palpitations, No syncope Gastrointestinal: No abdominal pain, No constipation, No diarrhea, loss of appetite, No nausea, No vomiting Genitourinary: No decreased output, No discharge, No dysuria, No frequency, No hematuria, No other (denies vaginal bleeding) Musculoskeletal: no symptoms reported Skin: no symptoms reported Psychiatric/Neurological: No Symptoms Reported All Other Systems Reviewed Negative Unless Noted: Yes (Negative excepted noted.) Past Rivotir-Dadlob-Oyknzw Hx Patient Social History Alcohol Use: Denies Use Recreational Drug Use: No Smoking Status: Never a Smoker 2nd Hand Smoke Exposure: No Recent Foreign Travel: No Contact w/Someone Who Travel: No Recent Infectious Disease Expo: No Recent Hopitalizations: No Immunizations Up To Date Tetanus Booster (TDap): Unknown Date of Influenza Vaccine: Dec 10, 2012 Seasonal Allergies Seasonal Allergies: No Surgeries History of Surgeries: Yes (LUNG SURG AND BX) 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 ) Cardiovascular History of Cardiac Disorders: No Neurological History of Neurological Disord: No 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 System : Yes Hx 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 Disorders: No Sexually Transmitted Disease: No Female 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 Disorders: Denies Gastrointestinal History of Gastrointestinal Di: No Musculoskeletal History of Musculoskeletal Dis: No Endocrine History of Endocrine Disorders: No HEENT Loss of Vision: Denies Cancer History of Cancer: No Psychosocial History of Psychiatric Problem: No Integumentary History of Skin or Integumenta: No Blood Transfusions History of Blood Disorders: No Adverse Reaction to a Blood Tr: No Reviewed Nursing Assessment Reviewed/Agree w Nursing PMH: Yes Family Medical History Significant Family History: No Pertinent Family Hx Family Medial History: Family history: Arthritis 03 MOTHER Family history: Asthma 03 MOTHER Family history: Diabetes mellitus 03 MOTHER Physical Exam Vital Signs Vital Sign - Last 12Hours 02/03/17 11:38 Temp 97.1 Pulse 75 Resp 16 B/P (MAP) 133/74 (93) Pulse Ox 99 O2 Delivery Room Air Capillary Refill : Less Than 3 Seconds General Appearance: WD/WN, no apparent distress HEENT: PERRL/EOMI, TMs normal, pharyngeal erythema, No tonsillar exudate, other (positive nasal congestion and rhinorrhea.) Neck: non-tender, full range of motion, supple, lymphadenopathy (R), lymphadenopathy (L) Respiratory: lungs clear, normal breath sounds, no respiratory distress, no accessory muscle use Cardiovascular: regular rate, rhythm, no edema, no murmur Gastrointestinal: normal bowel sounds, non tender, soft, No distended Extremities: normal inspection, no pedal edema, normal capillary refill Neurologic/Psychiatric: alert, normal mood/affect, oriented x 3 Skin: normal color, warm/dry Progress/Results/Core Measures Suspected Sepsis Recent Fever Within 48 Hours: Yes Infection Criteria Present: None New/Unexplained Altered Menta: No Sepsis Screen: No Definite Risk Sepsis Diagnosis: SIRS Temperature:97.1 Pulse: 75 Respiratory Rate: 16 Blood Pressure 133 /74 Mean: 93 Results/Orders Micro Results Microbiology 02/03/17 Influenza Types A,B Antigen (ERNESTO) - Final, Complete Vital Signs/I&O Vital Sign - Last 12Hours 02/03/17 02/03/17 11:38 12:31 Temp 97.1 98.0 Pulse 75 90 Resp 16 20 B/P (MAP) 133/74 (93) Pulse Ox 99 99 O2 Delivery Room Air Room Air Capillary Refill : Less Than 3 Seconds Blood Pressure Mean: 93 Departure Communication (Admissions) Progress Notes Laboratory findings discussed with the patient. 2 of the patient's sons are positive for influenza; therefore, patient was given a prescription for Tamiflu. Patient to follow-up this week with Dr. Lluvia Bosch for recheck. Impression Impression: Primary Impression: Influenza-like symptoms Additional Impression: 25 weeks gestation of Disposition: HOME, SELF-CARE Condition: Improved Departure-Patient Inst. Decision time for Depature: 12:18 Referrals: LLUVIA BOSCH DO (PCP/Family) Primary Care Physician Patient Instructions: Flu, Adult (DC) Add. Discharge Instructions: All discharge instructions reviewed with patient and/or family. Voiced understanding. Medications as instructed. Tylenol extra strength over-the- counter as directed for pain, headache, or fever. Push fluids. Cool humidifier. Benadryl [id number] as needed for nasal congestion and runny nose. Follow-up with Dr. Bosch this week for recheck, call for appointment time today. Return in the emergency department for worsened symptoms or any other concerns. Scripts Oseltamivir Phosphate (Tamiflu) 75 Mg Cap 75 MG PO BID, #10 CAP 0 Refills Prov: KIM ALVARES 02/03/17 Work/School Note: Work Release Form Date Seen in the Emergency Department: Feb 03, 2017 Return to Work: Feb 05, 2017 Restrictions: Return-No Fever (24hrs) KIM ALVARES Feb 03, 2017 12:20
[2017-02-03 12:31] VITALS: BP 120/70
== END 2017-02-03 12:32 | disposition home or self-care (01) ==
LOC: EDUNIT# 11:02 → ER 11:03
DX: O99.512 Diseases of the respiratory system complicating pregnancy, second trimester (principal); J11.1 Influenza due to unidentified influenza virus with other respiratory manifestations; Z79.84 Long term (current) use of oral hypoglycemic drugs; Z3A.25 25 weeks gestation of pregnancy
CPT/HCPCS: 87804; 99282

== ENCOUNTER 2017-02-05 10:57 | Outpatient (CLI) | payer MEDICAID ==
[~2017-02-05] VITALS: Ht 160 cm; Wt 72.6 kg
[2017-02-05 11:30] VITALS: BP 113/65
[2017-02-05 11:43] LABS: BILIRUBIN,URINE NEGATIVE (NEGATIVE); CLARITY,URINE CLEAR; COLOR,URINE YELLOW; GLUCOSE, URINE (UA) NEGATIVE (NEGATIVE); KETONES,URINE 2+ (NEGATIVE); LEUKOCYTE ESTERASE ,URINE NEGATIVE (NEGATIVE); NITRITE,URINE NEGATIVE (NEGATIVE); PH,URINE 6 (5-9); PROTEIN,URINE NEGATIVE (NEGATIVE); UROBILINOGEN,URINE NORMAL (NORMAL)
[2017-02-05] MEDS ORDERED: PREN-142 PO (11:49)
[2017-02-05] MEDS ORDERED: METF1000 PO (11:49)
[2017-02-05] MEDS ORDERED: HUM100IN4 SQ (11:49)
[2017-02-05 12:00] LABS: BACTERIA,URINE NEGATIVE /HPF
[2017-02-05 12:15] VITALS: BP 116/62
[2017-02-05] MEDS ORDERED: INFLUENZA TRIvalent 2017-2018 0.5 ML/45 MCG SYR IM ONE (13:15)
--- NOTE | 2017-02-12 15:04 | Physician Query-Final Dx ---
STEPHEN QUAN 02/12/17 1504: Clinic Account Progress/Dx Physician Query: Please give diagnosis Date of Service Feb 05, 2017 at 10:57 ELKIN MIRELES DO 02/12/17 1744: Clinic Account Progress/Dx DIAGNOSIS: Diagnosis 25 week IUP Decreased movement STEPHEN QUAN Feb 12, 2017 15:04 ELKIN MIRELES DO Feb 12, 2017 17:44
== END 2017-02-05 12:30 | disposition home or self-care (01) ==
LOC: WSo 10:57 → 3RD 10:59 → WSo 12:30
PROVIDERS: ATTEND Obstetrics & Gynecology
DX: O36.8120 Decreased fetal movements, second trimester, not applicable or unspecified (principal); Z3A.25 25 weeks gestation of pregnancy
CPT/HCPCS: 81000; 87088; 99213

== ENCOUNTER → 2017-03-12 | Outpatient (CLI) | payer MEDICAID ==
[~2017-03-12] MED LIST changes: +HUM100IN4 SQ; +METF1000 PO; +PREN-142 PO
--- NOTE | 2017-03-12 14:46 | Diagnostic Imaging Report ---
INDICATION: Gestational diabetes. Comparison is made with prior study from 12/29/2016. There is a single live fetus in a cephalic presentation. Placenta is on the right. The amniotic fluid volume is normal. heart rate was recorded at 147 beats per minute. Four-chamber heart view and cord insertion are unremarkable. IMPRESSION: Single IUP approximately 30 weeks gestational age showing normal interval growth when compared to prior exam. No complicating features are detected. Dictated by: Dictated on workstation # [id number]
== END ==
LOC: RAD 09:54
PROVIDERS: ATTEND Obstetrics & Gynecology
DX: O24.415 Gestational diabetes mellitus in pregnancy, controlled by oral hypoglycemic drugs (principal); Z3A.30 30 weeks gestation of pregnancy
CPT/HCPCS: 76816

== ENCOUNTER 2017-03-30 16:39 | Outpatient (CLI) | payer MEDICAID ==
[~2017-03-30] VITALS: Ht 160 cm; Wt 75.4 kg
[2017-03-30 16:39] VITALS: BP 134/61
--- NOTE | 2017-03-30 18:10 | Diagnostic Imaging Report ---
INDICATION: Leaking fluid. TECHNIQUE: Multiple, limited real-time grayscale images were obtained over the gravid uterus. COMPARISON: 03/12/2017. FINDINGS: Limited obstetrical sonogram imaging demonstrates cephalic presentation of the intrauterine . The amniotic fluid is within normal limits with an index at 12.6 cm. This is relatively stable from examination of 03/12/2017. Placenta is posterior and without evidence for previa. Biometrical measurements and full anatomical assessment was not performed. heart rate: 150 beats per minute. number: 1 of 1. IMPRESSION: Limited obstetrical sonogram imaging demonstrates intrauterine , currently in cephalic presentation. There appears to be relatively normal, stable amount of amniotic fluid when compared to most recent imaging. Dictated by: Dictated on workstation # [id number]
--- NOTE | 2017-03-31 15:01 | Physician Query-Final Dx ---
RASHID DE LA VEGA 03/31/17 1501: Clinic Account Progress/Dx Physician Query: Please give diagnosis Date of Service Mar 30, 2017 at 16:39 CHARLETTE BARTON MD 04/01/17 0611: Clinic Account Progress/Dx DIAGNOSIS: Diagnosis False labor RASHID DE LA VEGA Mar 31, 2017 15:01 CHARLETTE BARTON MD Apr 01, 2017 06:11
== END 2017-03-30 18:17 | disposition home or self-care (01) ==
LOC: WSo 16:39 → LDRP 16:40 → WSo 18:17
PROVIDERS: ATTEND Obstetrics & Gynecology
DX: O47.03 False labor before 37 completed weeks of gestation, third trimester (principal); Z3A.32 32 weeks gestation of pregnancy
CPT/HCPCS: 36415; 76816; 87210; 89060; 99214

== ENCOUNTER → 2017-04-09 | Outpatient (CLI) | payer MEDICAID ==
--- NOTE | 2017-04-09 11:28 | Diagnostic Imaging Report ---
INDICATION: Type 2 diabetes. TECHNIQUE: Multiple real-time grayscale images were obtained over the gravid uterus. COMPARISON: 03/30/2017. FINDINGS: Single live intrauterine fetus again demonstrated. Fetus is vertex. Amniotic fluid index is normal. Placenta is posterior estimated grade 2. No evidence of previa. heart rate 135 beats per minute. Fetus is active with good breathing demonstrated. The biometric measurements are currently average for 34 week 1 day gestation. Biometrical measurements are as follows: Biparietal 8.32 cm, age 33 weeks 4 days. Head circumference 30.42 cm, age 33 weeks 6 days. Abdominal circumference 31.75 cm, age 35 weeks 5 days. Femur length 6.37 cm, age 33 weeks 0 days. Sonographic estimate age: 34 weeks 1 days. Sonographic estimated date of delivery: 05/20/2017. Estimated Weight: 2451 gm (+/- 358 gm). LMP percentile: 60%. heart rate: 135 beats per minute. number: 1 of 1. IMPRESSION: 1. There is a 34 week 1 day live intrauterine showing normal growth since previous examination. 2. Normal biophysical profile with 8 of potential 8 points scored. Dictated by: Dictated on workstation # [id number]
== END ==
LOC: RAD 10:06
PROVIDERS: ATTEND Obstetrics & Gynecology
DX: O09.523 Supervision of elderly multigravida, third trimester (principal); O24.113 Pre-existing type 2 diabetes mellitus, in pregnancy, third trimester; Z3A.34 34 weeks gestation of pregnancy
CPT/HCPCS: 76805; 76819

== ENCOUNTER 2017-05-14 13:59 | Inpatient (IN) | payer MEDICAID ==
[2017-05-14] VITALS (35 sets, daily range): BP systolic 106–140; BP diastolic 60–89
[2017-05-14] MEDS ORDERED: LACTATED RINGERS 1,000 ML IV SCH (16:23)
[2017-05-14] MEDS ORDERED: OXYTOCIN/NORMAL SALINE 500 ML IV SCH ×2 (16:26→22:39)
[2017-05-14] MEDS ORDERED: MINERAL OIL CONCENTRATE 99.9% 15 ML UDC TOP PRN (16:30)
[2017-05-14] MEDS ORDERED: SUFENTA 0.6MCG/ML BUPIVA 0.125 100 ML ONE (17:17)
[2017-05-14] MEDS ORDERED: FERR160T5 PO (17:29)
[2017-05-14 17:31] LABS: BASOPHILS % (AUTO) 0 % (0-10); EOSINOPHILS # (AUTO) 0.1 10^3/uL (0.0-0.3); EOSINOPHILS % (AUTO) 1 % (0-10); HEMATOCRIT 36 % (35-52); HEMOGLOBIN 12.5 G/DL (11.5-16.0); LYMPHOCYTES # (AUTO) 0.9 X 10^3 (1.0-4.0); LYMPHOCYTES % (AUTO) 12 % (12-44); MEAN CORPUSCULAR HEMOGLOBIN 29 PG (25-34); MEAN CORPUSCULAR HGB CONC 35 G/DL (32-36); MEAN CORPUSCULAR VOLUME 85 FL (80-99); MEAN PLATELET VOLUME 10.5 FL (7.4-10.4); MONOCYTES # (AUTO) 0.5 X 10^3 (0.0-1.0); MONOCYTES % (AUTO) 7 % (0-12); NEUTROPHILS # (AUTO) 5.9 X 10^3 (1.8-7.8); NEUTROPHILS % (AUTO) 80 % (42-75); PLATELET COUNT 304 10^3/uL (130-400); RED BLOOD COUNT 4.25 10^6/uL (4.35-5.85); RED CELL DISTRIBUTION WIDTH 14.9 % (10.0-14.5); WHITE BLOOD COUNT 7.4 10^3/uL (4.3-11.0)
[2017-05-14 17:35] LABS: BILIRUBIN,URINE NEGATIVE (NEGATIVE); CLARITY,URINE CLEAR; COLOR,URINE YELLOW; GLUCOSE, URINE (UA) NEGATIVE (NEGATIVE); KETONES,URINE 1+ (NEGATIVE); LEUKOCYTE ESTERASE ,URINE 1+ (NEGATIVE); NITRITE,URINE NEGATIVE (NEGATIVE); PH,URINE 5 (5-9); PROTEIN,URINE 1+ (NEGATIVE); UROBILINOGEN,URINE NORMAL (NORMAL)
[2017-05-14 17:41] LABS: BACTERIA,URINE FEW /HPF; RBC,URINE 0-2 /HPF; WBC,URINE 0-2 /HPF
[2017-05-14] MEDS ORDERED: fentaNYL INJECTION 100 MCG/2 ML AMP ONE (18:44)
[2017-05-14] MEDS ORDERED: BUPIVACAINE 0.25% 30 ML (SENSORCAINE) VIAL ONE (19:43)
[2017-05-14] MEDS ORDERED: LIDOCAINE PF 2% 5 ML (XYLOCAINE) VIAL ONE (19:43)
[2017-05-14] MEDS ORDERED: CATHETER FLUSH 10 ML SYR IV SCH (22:00)
[2017-05-14] MEDS ORDERED: LIDOCAINE 1% INJ 20 ML 20 ML VIAL ONE (22:05)
[2017-05-14] MEDS ORDERED: LIDOCAINE/EPI 2% 1:200,00 (XYLOCAINE) 10 ML VIAL ONE (22:06)
--- NOTE | 2017-05-14 22:39 | OB Labor & Delivery Record ---
Vag Delivery Note Vag Delivery Note Date of Delivery: 05/14/17 Preoperative Diagnosis: Merle Mcgee is a 37 /Para 11/2017,Gestational Age 39 weeks, gest DM B, non reassuring testing, Postoperative Diagnosis: Same Surgeon: ASHLYN BOSCH Anesthesia: epidural Delivery Type: vaginal delivery Findings: Viable female , apgars 8/9, weight 8#0oz Lacerations: none Intact placenta with 3 vessel cord. Nuchal cord x 1 delivered through, body cord or shoulder dystocia Estimated Blood Loss: 150 ml Complications: None Condition: Stable Description of Procedure: The patient is a 37 /Para 11/2017,Gestational Age 39 weeks, gest DM B, non reassuring testing,. She was admitted and informed consent was obtained. Her labor course was remarkable for AROM, Pitocin augmentation, epidural placement She progressed to complete dilatation and began to push. She was then set up for delivery. The infant's head was delivered atraumatically in the NALLELY. position. The shoulders and remainder of the infant' s body were then delivered without difficulty. Nuchal cord x 1 delivered through. Upon delivery, the head was held below the level of the perineum and the mouth and nares were bulb suctioned. The cord was doubly clamped and cut and the infant was handed off to the pediatric staff. An intact placenta with 3- vessel cord delivered via Melva and there was found to be minimal bleeding.~ Vigorous fundal massage was performed and the fundus was found to be firm. IV oxytocin was given. Examination of the vagina and perineum revealed a no laceration. Following the delivery, sponge, instrument and needle counts were correct. Mom and baby were both in stable condition in the labor suite. Vitals - Labs Vital Signs - I&O Vital Signs Date Time Temp Pulse Resp B/P (MAP) Pulse Ox O2 Delivery O2 Flow Rate FiO2 05/14/17 19:33 109 18 123/77 (92) 97 Room Air 05/14/17 19:31 115 18 127/80 (96) 97 Room Air 05/14/17 19:29 130 18 128/85 (99) 99 Room Air 05/14/17 19:27 123 18 134/89 (104) 98 Room Air 05/14/17 19:19 122 18 139/85 (103) 98 Room Air 05/14/17 19:16 117 18 139/89 (106) 98 Room Air 05/14/17 19:11 98.6 118 18 139/83 (101) 98 Room Air 05/14/17 19:00 103 18 126/78 (94) Room Air 05/14/17 18:45 101 18 126/77 (93) Room Air 05/14/17 18:30 100 18 122/75 (91) Room Air 05/14/17 18:15 103 18 134/77 (96) Room Air 05/14/17 18:00 97 18 122/76 (91) Room Air 05/14/17 17:45 96 18 127/78 (94) Room Air 05/14/17 17:30 105 18 125/79 (94) Room Air 05/14/17 17:15 104 18 126/80 (95) Room Air 05/14/17 16:10 97.8 100 18 127/80 (96) Room Air Labs Laboratory Tests 05/14/17 17:10: White Blood Count 7.4, Red Blood Count 4.25L, Hemoglobin 12.5, Hematocrit 36, Mean Corpuscular Volume 85, Mean Corpuscular Hemoglobin 29, Mean Corpuscular Hemoglobin Concent 35, Red Cell Distribution Width 14.9H, Platelet Count 304, Mean Platelet Volume 10.5H, Neutrophils (%) (Auto) 80H, Lymphocytes (%) (Auto) 12, Monocytes (%) (Auto) 7, Eosinophils (%) (Auto) 1, Basophils (%) (Auto) 0, Neutrophils # (Auto) 5.9, Lymphocytes # (Auto) 0.9L, Monocytes # (Auto) 0.5, Eosinophils # (Auto) 0.1, Basophils # (Auto) 0.0, Urine Color YELLOW, Urine Clarity CLEAR, Urine pH 5, Urine Specific [place] 1.025H, Urine Protein 1+H, Urine Glucose (UA) NEGATIVE, Urine Ketones 1+H, Urine Nitrite NEGATIVE, Urine Bilirubin NEGATIVE, Urine Urobilinogen NORMAL, Urine Leukocyte Esterase 1+H, Urine RBC (Auto) 3+H, Urine RBC 0-2, Urine WBC 0-2, Urine Squamous Epithelial Cells 2-5, Urine Crystals NONE, Urine Bacteria FEWH, Urine Casts NONE, Urine Mucus SMALLH, Urine Culture Indicated NO 05/14/17 17:28: Glucometer 84 05/14/17 19:55: Glucometer 86 ASHLYN BOSCH DO May 14, 2017 22:39
[2017-05-14] MEDS ORDERED: MEASLES,MUMPS,RUBELLA 1 EA INJ SQ ONE (22:45)
[2017-05-14] MEDS ORDERED: BENZOCAINE/MENTHOL (DERMOPLAST) 56 ML CAN TP PRN (22:45)
[2017-05-14] MEDS ORDERED: WITCH HAZEL(TUCKS) 40 EA JAR TOP PRN (22:45)
[2017-05-14] MEDS ORDERED: ACETAMINOPHEN 500 MG TAB (TYLENOL) PO PRN (22:45)
[2017-05-14] MEDS ORDERED: DIBUCAINE (NUPERCAINAL) 1% OINT 30 GM TOP PRN (22:45)
[2017-05-14] MEDS ORDERED: TETANUS,DIPTH,PERTUSS P/F (BOOSTRIX) 0.5 ML VIAL IM ONE (22:45)
[2017-05-14] MEDS: IBUPROFEN 600 MG (MOTRIN) TAB PO SCH (23:36)
[2017-05-15 00:06] VITALS: BP 114/74
[2017-05-15] MEDS: CATHETER FLUSH 10 ML SYR IV SCH ×2 (00:45→12:42)
[2017-05-15 00:49] VITALS: BP 120/74
[2017-05-15 04:30] VITALS: BP 117/70
[2017-05-15 05:42] LABS: BASOPHILS % (AUTO) 0 % (0-10); EOSINOPHILS # (AUTO) 0.1 10^3/uL (0.0-0.3); EOSINOPHILS % (AUTO) 1 % (0-10); HEMATOCRIT 30 % (35-52); HEMOGLOBIN 10.3 G/DL (11.5-16.0); LYMPHOCYTES % (AUTO) 12 % (12-44); MEAN CORPUSCULAR HEMOGLOBIN 30 PG (25-34); MEAN CORPUSCULAR HGB CONC 35 G/DL (32-36); MEAN CORPUSCULAR VOLUME 86 FL (80-99); MEAN PLATELET VOLUME 9.7 FL (7.4-10.4); MONOCYTES # (AUTO) 0.7 X 10^3 (0.0-1.0); MONOCYTES % (AUTO) 8 % (0-12); NEUTROPHILS # (AUTO) 6.6 X 10^3 (1.8-7.8); NEUTROPHILS % (AUTO) 80 % (42-75); PLATELET COUNT 237 10^3/uL (130-400); RED BLOOD COUNT 3.42 10^6/uL (4.35-5.85); RED CELL DISTRIBUTION WIDTH 14.8 % (10.0-14.5); WHITE BLOOD COUNT 8.3 10^3/uL (4.3-11.0)
[2017-05-15] MEDS: IBUPROFEN 600 MG (MOTRIN) TAB PO SCH ×3 (06:27→17:17)
--- NOTE | 2017-05-15 07:22 | Anesthesia-Regional Post-Op ---
Regional Patient Condition Mental Status: Alert, Oriented x3 Circulation: Same as Pre-Op Headache: Absent Sensation: Full Recovery Motor Block: Absent Post Op Complications Complications None Follow Up Care/Instructions Patient Instructions None needed. Anesthesia/Patient Condition Patient is doing well, no complaints, stable vital signs, no apparent adverse anesthesia problems. No complications reported per nursing. VINCENZO GLAINDO CRNA May 15, 2017 07:22
[2017-05-15 08:00] VITALS: BP 122/72
[2017-05-15] MEDS: DOCUSATE SODIUM 100 MG (COLACE) CAP PO SCH (08:05)
[2017-05-15] MEDS: PRENATAL VITAMIN 1 EA TAB PO SCH (08:05)
[2017-05-15] MEDS: FERROUS SULF 325 MG (IRON) TAB PO SCH (08:05)
[2017-05-15] MEDS: metFORMIN 500 MG (GLUCOPHAGE) TAB PO SCH ×2 (08:05→17:17)
[2017-05-15 12:00] VITALS: BP 120/72
[2017-05-15 16:00] VITALS: BP 116/68
--- NOTE | 2017-05-15 17:24 | Postpartum Progress Note ---
Note Note Day # [] Subjective: Patient is without complaints. Ambulating, voiding. Tolerating a regular diet without nausea or vomiting. Normal lochia. Pain is well controlled with oral pain medications. [] feeding. [] Objective: [] Physical Exam: General - Alert and oriented, no apparent distress Abdomen - Soft, appropriately tender to palpation, non-distended, fundus firm at umbilicus Extremities - no edema, negative Arianna's bilaterally [] Assessment: [] post- day # [], status post [] vaginal delivery. Recovering well, hemodynamically stable [] Plan: Routine care. Encourage breast feeding. Encourage ambulation. Ferrous sulfate supplementation. Plan for discharge [] Vitals - Labs Vital Signs - I&O Vital Signs Date Time Temp Pulse Resp B/P (MAP) Pulse Ox O2 Delivery O2 Flow Rate FiO2 05/15/17 16:00 97.8 16 116/68 (84) Room Air 05/15/17 12:00 97.1 18 120/72 (88) 98 Room Air 05/15/17 08:00 97.6 94 18 122/72 (89) 98 Room Air 05/15/17 04:30 97.1 95 18 117/70 (86) 98 Room Air 05/15/17 00:49 97.3 94 16 120/74 (89) Room Air 05/15/17 00:06 99 16 114/74 (87) Room Air 05/14/17 23:51 106 16 106/76 (86) Room Air 05/14/17 23:36 96 16 120/71 (87) Room Air 05/14/17 23:21 97.6 101 16 129/71 (90) Room Air 05/14/17 23:06 100 16 140/61 (87) Room Air 05/14/17 22:50 100 16 130/60 (83) Room Air 05/14/17 22:36 100 16 129/60 (83) Room Air 05/14/17 22:22 109 16 133/71 (91) 99 Room Air 05/14/17 22:06 98.1 115 16 128/75 (92) 99 Room Air 05/14/17 21:51 120 16 119/76 (90) 99 Room Air 05/14/17 21:36 94 16 124/71 (88) 99 Room Air 05/14/17 21:21 98 16 122/68 (86) 99 Room Air 05/14/17 21:08 101 16 123/68 (86) 99 Room Air 05/14/17 20:52 96 16 121/77 (92) 99 Room Air 05/14/17 20:45 98.3 93 16 98 Room Air 05/14/17 20:36 96 16 122/75 (91) 99 Room Air 05/14/17 20:21 88 16 119/79 (92) 98 Room Air 05/14/17 20:05 87 16 138/75 (96) 98 Room Air 05/14/17 19:51 109 16 124/76 (92) 98 Room Air 05/14/17 19:46 108 16 124/78 (93) 98 Room Air 05/14/17 19:41 114 16 126/73 (90) 98 Room Air 05/14/17 19:33 109 18 123/77 (92) 97 Room Air 05/14/17 19:31 115 18 127/80 (96) 97 Room Air 05/14/17 19:29 130 18 128/85 (99) 99 Room Air 05/14/17 19:27 123 18 134/89 (104) 98 Room Air 05/14/17 19:19 122 18 139/85 (103) 98 Room Air 05/14/17 19:16 117 18 139/89 (106) 98 Room Air 05/14/17 19:11 98.6 118 18 139/83 (101) 98 Room Air 05/14/17 19:00 103 18 126/78 (94) Room Air 05/14/17 18:45 101 18 126/77 (93) Room Air 05/14/17 18:30 100 18 122/75 (91) Room Air 05/14/17 18:15 103 18 134/77 (96) Room Air 05/14/17 18:00 97 18 122/76 (91) Room Air 05/14/17 17:45 96 18 127/78 (94) Room Air 05/14/17 17:30 105 18 125/79 (94) Room Air I & O 05/15/17 07:00 Intake Total 1000 ml Balance 1000 ml Labs Laboratory Tests 05/14/17 17:28: Glucometer 84 05/14/17 19:55: Glucometer 86 05/14/17 22:45: Glucometer 87 05/15/17 05:30: White Blood Count 8.3, Red Blood Count 3.42L, Hemoglobin 10.3L, Hematocrit 30L, Mean Corpuscular Volume 86, Mean Corpuscular Hemoglobin 30, Mean Corpuscular Hemoglobin Concent 35, Red Cell Distribution Width 14.8H, Platelet Count 237, Mean Platelet Volume 9.7, Neutrophils (%) (Auto) 80H, Lymphocytes (%) (Auto) 12 , Monocytes (%) (Auto) 8, Eosinophils (%) (Auto) 1, Basophils (%) (Auto) 0, Neutrophils # (Auto) 6.6, Lymphocytes # (Auto) 1.0, Monocytes # (Auto) 0.7, Eosinophils # (Auto) 0.1, Basophils # (Auto) 0.0 05/15/17 06:54: Glucometer 89 05/15/17 09:46: Glucometer 210H 05/15/17 16:40: Glucometer 110 Microbiology 05/14/17 Urine Culture - Preliminary, Resulted ASHLYN BOSCH DO May 15, 2017 17:24
[2017-05-16 00:05] VITALS: BP 115/73
[2017-05-16] MEDS: DOCUSATE SODIUM 100 MG (COLACE) CAP PO SCH ×2 (00:06→08:13)
[2017-05-16] MEDS: IBUPROFEN 600 MG (MOTRIN) TAB PO SCH ×3 (00:06→13:40)
[2017-05-16 06:12] VITALS: BP 101/63
[2017-05-16 08:00] VITALS: BP 117/70
[2017-05-16] MEDS: metFORMIN 500 MG (GLUCOPHAGE) TAB PO SCH (08:13)
[2017-05-16] MEDS: PRENATAL VITAMIN 1 EA TAB PO SCH (08:13)
[2017-05-16] MEDS: FERROUS SULF 325 MG (IRON) TAB PO SCH (08:13)
[2017-05-16] MEDS ORDERED: AMOXICILLIN 500 MG (POLYMOX) CAP PO SCH (08:24)
--- NOTE | 2017-05-16 08:26 | Postpartum Progress Note ---
Note Note Day # 2 s/p Type II diabetes, gest diabetes B non reassuring testing UTI on admission UA (sens pending) Subjective: Patient is without complaints. Ambulating, voiding. Tolerating a regular diet without nausea or vomiting. Normal lochia. Pain is well controlled with oral pain medications. Objective: Laboratory Tests Test 05/14/17 17:10 05/14/17 17:28 05/14/17 19:55 05/14/17 22:45 Range/Units White Blood Count 7.4 4.3-11.0 10^3/uL Red Blood Count 4.25 L 4.35-5.85 10^6/uL Hemoglobin 12.5 11.5-16.0 G/DL Hematocrit 36 35-52 % Mean Corpuscular Volume 85 80-99 FL Mean Corpuscular Hemoglobin 29 25-34 PG Mean Corpuscular Hemoglobin Concent 35 32-36 G/DL Red Cell Distribution Width 14.9 H 10.0-14.5 % Platelet Count 304 130-400 10^3/uL Mean Platelet Volume 10.5 H 7.4-10.4 FL Neutrophils (%) (Auto) 80 H 42-75 % Lymphocytes (%) (Auto) 12 12-44 % Monocytes (%) (Auto) 7 0-12 % Eosinophils (%) (Auto) 1 0-10 % Basophils (%) (Auto) 0 0-10 % Neutrophils # (Auto) 5.9 1.8-7.8 X 10^3 Lymphocytes # (Auto) 0.9 L 1.0-4.0 X 10^3 Monocytes # (Auto) 0.5 0.0-1.0 X 10^3 Eosinophils # (Auto) 0.1 0.0-0.3 10^3/uL Basophils # (Auto) 0.0 0.0-0.1 10^3/uL Urine Color YELLOW Urine Clarity CLEAR Urine pH 5 5-9 Urine Specific [place] 1.025 H 1.016-1.022 Urine Protein 1+ H NEGATIVE Urine Glucose (UA) NEGATIVE NEGATIVE Urine Ketones 1+ H NEGATIVE Urine Nitrite NEGATIVE NEGATIVE Urine Bilirubin NEGATIVE NEGATIVE Urine Urobilinogen NORMAL NORMAL MG/DL Urine Leukocyte Esterase 1+ H NEGATIVE Urine RBC (Auto) 3+ H NEGATIVE Urine RBC 0-2 /HPF Urine WBC 0-2 /HPF Urine Squamous Epithelial Cells 2-5 /HPF Urine Crystals NONE /LPF Urine Bacteria FEW H /HPF Urine Casts NONE /LPF Urine Mucus SMALL H /LPF Urine Culture Indicated NO Glucometer 84 86 87 70-110 MG/DL Test 05/15/17 05:30 05/15/17 06:54 05/15/17 09:46 05/15/17 16:40 Range/Units White Blood Count 8.3 4.3-11.0 10^3/uL Red Blood Count 3.42 L 4.35-5.85 10^6/uL Hemoglobin 10.3 L 11.5-16.0 G/DL Hematocrit 30 L 35-52 % Mean Corpuscular Volume 86 80-99 FL Mean Corpuscular Hemoglobin 30 25-34 PG Mean Corpuscular Hemoglobin Concent 35 32-36 G/DL Red Cell Distribution Width 14.8 H 10.0-14.5 % Platelet Count 237 130-400 10^3/uL Mean Platelet Volume 9.7 7.4-10.4 FL Neutrophils (%) (Auto) 80 H 42-75 % Lymphocytes (%) (Auto) 12 12-44 % Monocytes (%) (Auto) 8 0-12 % Eosinophils (%) (Auto) 1 0-10 % Basophils (%) (Auto) 0 0-10 % Neutrophils # (Auto) 6.6 1.8-7.8 X 10^3 Lymphocytes # (Auto) 1.0 1.0-4.0 X 10^3 Monocytes # (Auto) 0.7 0.0-1.0 X 10^3 Eosinophils # (Auto) 0.1 0.0-0.3 10^3/uL Basophils # (Auto) 0.0 0.0-0.1 10^3/uL Glucometer 89 210 H 110 70-110 MG/DL Test 05/15/17 20:36 05/16/17 06:12 Range/Units Glucometer 109 79 70-110 MG/DL Microbiology 05/14/17 Urine Culture - Preliminary, Resulted Staphylococcus aureus Enterococcus species Staph, Coag Neg (CERTIFIED TUMOR REGISTRAR) Physical Exam: General - Alert and oriented, no apparent distress Abdomen - Soft, appropriately tender to palpation, non-distended, fundus firm at umbilicus Extremities - no edema, negative Arianna's bilaterally [] Assessment: [] post- day # [], status post [] vaginal delivery. Recovering well, hemodynamically stable [] Plan: Routine care. Encourage breast feeding. Encourage ambulation. Ferrous sulfate supplementation. Plan for discharge [] Vitals - Labs Vital Signs - I&O Vital Signs Date Time Temp Pulse Resp B/P (MAP) Pulse Ox O2 Delivery O2 Flow Rate FiO2 05/16/17 06:12 98.1 88 18 101/63 (76) 99 05/16/17 00:05 97.5 90 18 115/73 (87) 98 05/15/17 16:00 97.8 16 116/68 (84) Room Air 05/15/17 12:00 97.1 18 120/72 (88) 98 Room Air Labs Laboratory Tests 05/15/17 09:46: Glucometer 210H 05/15/17 16:40: Glucometer 110 05/15/17 20:36: Glucometer 109 05/16/17 06:12: Glucometer 79 Microbiology 05/14/17 Urine Culture - Preliminary, Resulted Staphylococcus aureus Enterococcus species Staph, Coag Neg (CERTIFIED TUMOR REGISTRAR) ASHLYN BOSCH DO May 16, 2017 08:26
[2017-05-16] MEDS ORDERED: AMOX500C2 PO (08:27)
[2017-05-16] MEDS ORDERED: IBUP-1773 PO (08:27)
[2017-05-16] MEDS ORDERED: ACET-77 PO (08:27)
--- NOTE | 2017-05-16 08:30 | Discharge Inst-Women's Service ---
Discharge Inst-Women's Serv Depart Medication/Instructions New, Converted or Re-Newed RX: Transmitted to Pharmacy Instructions continue metformin bid and diabetic diet. Follow up with Dr. Zuniga in 4 weeks Call for appointment with dr. bosch in 6 weeks. Final Diagnosis type II diabetes, preexisting, in gest diabetes, B non reassuring testing. induction vaginal delivery Acute UTI Consults/Follow Up Additional Follow Up: Yes ([address] bosch) Orders/Referrals Follow up with PCP /Dr. Zuniga in 4 weeks to discuss diabetes Continue metformin Activity Activity: Activity as Tolerated Driving Instructions: You May Drive NO SMOKING: NO SMOKING Nothing Inside Vagina: No Douching, No [place], No Tampons Diet Discharge Diet: No Restrictions Symptoms to Report to : Bleeding Excessive, Pain Increased, Fever Over 101 Degrees F, Vaginal Bleeding Increase, Cramps in Feet or Legs, Vaginal Discharge Foul For Any Problems or Questions: Contact Your Physician ASHLYN BOSCH DO May 16, 2017 08:30
== END 2017-05-16 13:55 | disposition home or self-care (01) | DRG 775 ==
LOC: LDRP 13:59
PROVIDERS: ADMIT Obstetrics & Gynecology; ATTEND Obstetrics & Gynecology
PROC: 10E0XZZ Delivery of Products of Conception, External Approach (ICD-10-PCS; principal; 2017-05-14)
DX: O24.429 Gestational diabetes mellitus in childbirth, unspecified control (principal); O69.81X0 Labor and delivery complicated by cord around neck, without compression, not applicable or unspecified; Z3A.39 39 weeks gestation of pregnancy; Z37.0 Single live birth
CPT/HCPCS: 36415; 81000; 82962; 85025; 86850; 86900; 86901; 87077; 87088; 87186

== ENCOUNTER → 2018-06-11 | Outpatient (CLI) | payer SELFPAY ==
[~2018-06-11] MED LIST changes: +ACET-77 PO; +AMOX500C2 PO; +FERR160T5 PO; +IBUP-1773 PO; +METF-397 PO; +METF-399 PO; -METF1000 PO; -METF500T4 PO
--- NOTE | 2018-06-11 12:16 | Diagnostic Imaging Report ---
INDICATION: survey. TECHNIQUE: Multiple real-time grayscale images were obtained over the gravid uterus. COMPARISON: There are no recent exams available for comparison. FINDINGS: There is a single live fetus in variable presentation. heart motion was noted and a rate of 167 BPM was recorded. There were no abnormalities identified but the right kidney was not well visualized. The placenta is posterior and there is no previa. The amniotic fluid volume is within normal limits. The growth parameters are fairly uniform. The cervix was identified and measures 5.2 cm in length. IMPRESSION: 1. There is a single live fetus at approximately 19 weeks 1 day gestation +/-1.5 weeks. The EDC is November 04, 2018. 2. There were no abnormalities identified, although the right kidney was not well visualized. If further study is desired, then a short-term (4-6 week) followup ultrasound exam should be obtained. 3. The growth parameters are fairly uniform. Biometrical measurements are as follows: Biparietal 4.15 cm, age 18 weeks 5 days. Head circumference 16.06 cm, age 19 weeks 0 days. Abdominal circumference 13.62 cm, age 19 weeks 1 days. Femur length 2.97 cm, age 19 weeks 2 days. Sonographic estimate age: 19 weeks 1 days. Sonographic estimated date of delivery: 11/04/2018. Estimated Weight: 272 gm (+/- 40 gm). LMP percentile: 83%. heart rate: 167 beats per minute. number: 1 of 1. Dictated by: Dictated on workstation # [id number]
== END ==
LOC: RAD 09:26
PROVIDERS: ATTEND Obstetrics & Gynecology
DX: O09.522 Supervision of elderly multigravida, second trimester (principal); Z3A.19 19 weeks gestation of pregnancy
CPT/HCPCS: 76805

== ENCOUNTER → 2018-07-20 | Outpatient (CLI) | payer MEDICAID ==
--- NOTE | 2018-07-20 13:56 | Diagnostic Imaging Report ---
INDICATION: survey TECHNIQUE: Multiple real-time grayscale images were obtained over the gravid uterus. COMPARISON: None 06/11/2018 FINDINGS: The previous OB ultrasound exam of 06/11/2018 noted a single live fetus approximately 19 weeks one day gestation. On this exam the fetus is again visualized. The fetus is cephalic in presentation. heart motion was noted at a rate of 129 bpm and was recorded. On the prior exam the right kidney was not well visualized. On this exam both kidneys were identified and seem to be within normal limits. There is no other abnormality noted. The growth parameters were not obtained for this exam. The placenta is posterior and there is no previa. The amniotic fluid volume is within normal limits. Cervix was identified and measures 3.8 CM in length. Biometrical measurements are as follows: Biparietal cm, age weeks days. Head circumference cm, age weeks days. Abdominal circumference cm, age weeks days. Femur length cm, age weeks days. Sonographic estimate age: weeks days. Sonographic estimated date of delivery: . Estimated Weight: gm (+/- gm). LMP percentile: %. heart rate: beats per minute. number: of . IMPRESSION: 1. There is a single live fetus approximately 24 weeks gestation plus or minus one week. EDC remains 11/04/2018. 2. There were no abnormalities identified. In particular the kidneys appear within normal limits. Dictated by: Dictated on workstation # [id number]
== END ==
LOC: RAD 11:29
PROVIDERS: ATTEND Obstetrics & Gynecology
DX: O24.912 Unspecified diabetes mellitus in pregnancy, second trimester (principal); Z3A.24 24 weeks gestation of pregnancy
CPT/HCPCS: 76816

== ENCOUNTER → 2018-08-31 | Outpatient (CLI) | payer MEDICAID ==
--- NOTE | 2018-08-31 14:25 | Diagnostic Imaging Report ---
INDICATION: Check growth and position. TECHNIQUE: Multiple real-time grayscale images were obtained over the gravid uterus. COMPARISON: None FINDINGS: The previous OB ultrasound exam of 07/20/2018 noted a single live fetus of approximately 24 weeks gestation. There were no abnormalities identified. On this exam the fetus is again visualized. The fetus is cephalic in presentation. heart motion is noted and a rate of 140 bpm was recorded. There were no obvious abnormalities identified. The growth parameters have progressed as expected since the prior study. The placenta is fundal and there is no previa. The amniotic fluid volume is within normal limits. The cervix measures 4.6 cm in length. IMPRESSION: 1. There is a single live fetus of approximately 30 weeks 5 days gestation +/- 1 week. The EDC remains November 04, 2018. 2. There were no abnormalities identified. 3. The growth parameters have progressed as expected since the prior study. Biometrical measurements are as follows: Biparietal 7.90 cm, age 31 weeks 5 days. Head circumference 28.85 cm, age 31 weeks 6 days. Abdominal circumference 25.62 cm, age 29 weeks 6 days. Femur length 6.09 cm, age 31 weeks 5 days. Sonographic estimate age: 31 weeks 2 days. Sonographic estimated date of delivery: 10/31/2018. Estimated Weight: 1627 gm (+/- 238 gm). LMP percentile: 63%. heart rate: 140 beats per minute. number: 1 of 1. Dictated by: Dictated on workstation # [id number]
== END ==
LOC: RAD 12:54
PROVIDERS: ATTEND Obstetrics & Gynecology
DX: O09.523 Supervision of elderly multigravida, third trimester (principal); O24.113 Pre-existing type 2 diabetes mellitus, in pregnancy, third trimester; Z3A.30 30 weeks gestation of pregnancy; E11.9 Type 2 diabetes mellitus without complications
CPT/HCPCS: 76805

== ENCOUNTER → 2018-10-08 | Outpatient (CLI) | payer MEDICAID ==
--- NOTE | 2018-10-08 16:36 | Diagnostic Imaging Report ---
INDICATION: Pre-existing diabetes complicating . TECHNIQUE: Multiple real-time grayscale images were obtained over the gravid uterus. The fetus was observed by the sales administration manager for purposes of a nonstress biophysical profile evaluation. COMPARISON: 08/31/2018. FINDINGS: Single viable intrauterine currently in cephalic presentation. The amount of amniotic fluid is at the upper limits of normal, index at 18.5 cm. Placenta along the left uterine fundus without evidence for previa. Full anatomical assessment is not performed. Biometrical measurements are as follows: Biparietal 8.62 cm, age 34 weeks 6 days. Head circumference 32.37 cm, age 36 weeks 5 days. Abdominal circumference 33.53 cm, age 37 weeks 4 days. Femur length 7.05 cm, age 36 weeks 1 day. Sonographic estimate age: 36 weeks 3 days. Sonographic estimated date of delivery: 11/02/18 . Estimated Weight: 3013 g (+/- 440 g). LMP percentile: 83%. heart rate: 146 beats per minute. number: 1 of 1. Biophysical Profile Scoring: breathin Body movement: 2 tone: 2 Amniotic fluid: 2 Total BPP Score: 8/8. IMPRESSION: 1. Single viable intrauterine currently in cephalic presentation. Sonographic estimated age 36 weeks 3 days with an estimated date of delivery November 02, 2018. 2. Estimated weight currently at the 83rd percentile. 3. Borderline polyhydramnios. 4. Normal biophysical profile scoring 8/8. Dictated by: Dictated on workstation # [id number]
== END ==
LOC: RAD 12:57
PROVIDERS: ATTEND Obstetrics & Gynecology
DX: O24.113 Pre-existing type 2 diabetes mellitus, in pregnancy, third trimester (principal); Z3A.36 36 weeks gestation of pregnancy
CPT/HCPCS: 76805; 76819

== ENCOUNTER 2018-10-25 10:04 | Inpatient (IN) | payer MEDICAID | END 2018-10-27 16:25 | disposition home or self-care (01) | LOC: WSo 10:04 → LDRP 22:24 → WSo 12:43 → LDRP 11:24 ==

== ENCOUNTER 2020-04-09 18:11 | Emergency (ER) | payer MEDICAID ==
[~2020-04-09] VITALS: Ht 157.4 cm; Wt 71.9 kg
[~2020-04-09 18:11] MED LIST changes: -ACET-77 PO; +ACET-78 PO; +IBUP-844 PO
[2020-04-09 18:45] LABS: BILIRUBIN,URINE NEGATIVE (NEGATIVE); CLARITY,URINE CLEAR; COLOR,URINE YELLOW; GLUCOSE, URINE (UA) NEGATIVE (NEGATIVE); KETONES,URINE TRACE (NEGATIVE); LEUKOCYTE ESTERASE ,URINE NEGATIVE (NEGATIVE); NITRITE,URINE NEGATIVE (NEGATIVE); PROTEIN,URINE NEGATIVE (NEGATIVE)
[2020-04-09 18:46] LABS: BACTERIA,URINE TRACE /HPF; WBC,URINE 0-2 /HPF
[2020-04-09 18:48] LABS: BASOPHILS % (AUTO) 0 % (0-10); EOSINOPHILS % (AUTO) 2 % (0-10); HEMATOCRIT 32 % (35-52); HEMOGLOBIN 9.3 G/DL (11.5-16.0); LYMPHOCYTES % (AUTO) 22 % (12-44); MEAN CORPUSCULAR HEMOGLOBIN 20 PG (25-34); MEAN CORPUSCULAR HGB CONC 29 G/DL (32-36); MEAN CORPUSCULAR VOLUME 68 FL (80-99); MEAN PLATELET VOLUME 10.2 FL (7.4-10.4); MONOCYTES % (AUTO) 6 % (0-12); NEUTROPHILS % (AUTO) 70 % (42-75); PLATELET COUNT 412 10^3/uL (130-400); WHITE BLOOD COUNT 8.3 10^3/uL (4.3-11.0)
[2020-04-09 18:49] LABS: EOSINOPHILS # (AUTO) 0.2 10^3/uL (0.0-0.3); LYMPHOCYTES # (AUTO) 1.8 X 10^3 (1.0-4.0); MONOCYTES # (AUTO) 0.5 X 10^3 (0.0-1.0); NEUTROPHILS # (AUTO) 5.8 X 10^3 (1.8-7.8)
[2020-04-09 18:54] LABS: BAND NEUTROPHILS 4 %; ELLIPT/OVALOCYTES SLIGHT; EOSINOPHILS % (MANUAL) 2 %; HYPOCHROMASIA 2+; LYMPHOCYTES % (MANUAL) 19 %; MICROCYTOSIS 3+; MONOCYTES % (MANUAL) 8 %; NEUTROPHILS % (MANUAL) 67 %; POIKILOCYTOSIS 1+
[2020-04-09 19:02] LABS: SODIUM 140 MMOL/L (135-145)
[2020-04-09 19:03] LABS: ALANINE AMINOTRANSFERASE 24 U/L (0-55); ALBUMIN 4.4 GM/DL (3.2-4.5); ALKALINE PHOSPHATASE 81 U/L (40-136); BILIRUBIN,TOTAL 0.2 MG/DL (0.1-1.0); BUN/CREATININE RATIO 29; CALCIUM 9.4 MG/DL (8.5-10.1); CARBON DIOXIDE 23 MMOL/L (21-32); CHLORIDE 105 MMOL/L (98-107); CREATININE SERUM 0.52 MG/DL (0.60-1.30); GFR ESTIMATED > 60; GLUCOSE 237 MG/DL (70-105); POTASSIUM 4.2 MMOL/L (3.6-5.0)
[2020-04-09] MEDS ORDERED: CATHETER FLUSH 10 ML SYR IV PRN (19:15)
[2020-04-09] MEDS ORDERED: IOHEXOL 350 MG/ML 100 ML (OMNIPAQUE 350) VIAL IV ONE (19:15)
[2020-04-09] MEDS ORDERED: HOLD METFORMIN - RECEIVED CONTRAST 20 ML VIAL IV SCH (19:15)
[2020-04-09] MEDS ORDERED: NS 100 ML (IVPB) BAG IV ONE (19:15)
--- NOTE | 2020-04-09 19:36 | Diagnostic Imaging Report ---
INDICATION: Right lower quadrant pain. TECHNIQUE: Multiple contiguous axial images were obtained through the abdomen and pelvis after administration of intravenous contrast. Auto Exposure Controls were utilized during the CT exam to meet ALARA standards for radiation dose reduction. All CT scans use one or more of the following dose optimizing techniques: automated exposure control, MA and/or KvP adjustment based on patient size and exam type or iterative reconstruction. COMPARISON made to prior study of 04/10/2014. The visualized portions of the lung bases are clear. There were no pleural fluid collections. There is no free intraperitoneal air. The liver shows diffuse fatty infiltration with mild hepatomegaly. Gallbladder appears normal. The spleen is unremarkable. The pancreas, kidneys and adrenals appear normal. There is no retroperitoneal mass or adenopathy. There is no ascites or abnormal fluid collection. The uterus appears enlarged and somewhat retroverted and inhomogeneous. This has not changed compared to the previous study. Visualized bowel loops show no overt obstruction. The appendix appears normal. IMPRESSION: The appendix appears normal. There is fatty infiltration of the liver with mild hepatomegaly. There is no abdominal mass or abnormal fluid collection. There is no sign of bowel obstruction. The uterus is somewhat prominent and inhomogeneous and appears retroverted, this has not changed compared to the previous study, consider sonographic follow-up if clinically warranted. Dictated by: Dictated on workstation # [id number]
--- NOTE | 2020-04-09 21:08 | ED General ---
General Chief Complaint: Female 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 Stated Complaint: ABD PAIN Nursing Triage Note: Patient presents to ER reporting low pelvic pain for 2 weeks intermittant and sharp. Pt states she just got new job and cannot miss work and wants evaluated. Pt states Ibuprofen 800 mg at 1300 has not relieved. LMP 02/29/20, hx of tubal ligation Nursing Sepsis Screen: No Definite Risk Source of Information: Patient History of Present Illness Date Seen by Provider: Apr 09, 2020 Time Seen by Provider: 17:00 Initial Comments Patient is a 40-year-old female G 11, PTEN female with history of tubal ligation who presents with remittent suprapubic and periumbilical pain x2 weeks. Pain is sharp, nonradiating worse with palpation. It is not relieved with position change. Patient took ibuprofen this morning without relief of symptoms. Patient denies urinary frequency urgency or dysuria. Denies vaginal discharge or bleeding. Denies urinary frequency urgency burning flank pain or history of kidney stones. No nausea vomiting or sweats. No prior abdominal surgeries. Patient has not been evaluated fo for this complaint prior to today's ER visit. Timing/Duration: Changing Over Time, Intermittent (2 weeks) Severity: Moderate Modifying Factors: improves with Other Associated Systoms: Other Allergies and Home Medications Allergies Coded Allergies: No Known Drug Allergies (Unverified , 09/30/15) Home Medications Acetaminophen 500 Mg Tablet, 1,000 MG PO Q8HR Prescribed by: ASHLYN BOSCH on 10/26/18 0853 Ibuprofen 600 Mg Tablet, 600 MG PO Q6HR Prescribed by: ASHLYN BOSCH on 10/26/18 0853 Metformin HCl 500 Mg Tablet, 1,000 MG PO BID@ Prescribed by: ASHLYN BOSCH on 10/26/18 0853 Patient Home Medication List Home Medication List Reviewed: Yes Review of Systems Review of Systems Constitutional: see HPI EENTM: see HPI Respiratory: see HPI Cardiovascular: see HPI Gastrointestinal: see HPI Genitourinary: see HPI Musculoskeletal: see HPI Skin: see HPI Psychiatric/Neurological: See HPI Hematologic/Lymphatic: See HPI Immunological/Allergic: see HPI All Other Systems Reviewed Negative Unless Noted: Yes Past Stcyurr-Ivppfp-Waommv Hx Past Med/Social Hx: Reviewed Nursing Past Med/Soc Hx Patient Social History Alcohol Use: Denies Use Smoking Status: Former Smoker Type Used: Cigarettes Former Smoker, Quit: May 15, 2007 2nd Hand Smoke Exposure: No Recent Infectious Disease Expo: No Recent Hopitalizations: No Immunizations Up To Date Tetanus Booster (TDap): Unknown PED Vaccines UTD: No Date of Influenza Vaccine: Dec 11, 2019 Seasonal Allergies Seasonal Allergies: No Past Medical History Surgeries: Yes (pulmonary nodule removed) Tubal Ligation Respiratory: Yes (Solitary Pulmonary nodule) Cardiac: No Neurological: No : No Last Menstrual Period: Feb 29, 2020 Hx : 11 Hx Para: 10 Hx Total # of Abortions (Sp): 1 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 Disorders: No Female 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 Disorders: 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 Sexually Transmitted Disease: No HIV/AIDS: No Genitourinary: No Gastrointestinal: No (Hx of Hepatomegaly w/ liver dz) Musculoskeletal: Yes (Castleman's Disease) Endocrine: Yes (DM Type II) Diabetes, Insulin dep HEENT: No Loss of Vision: Denies Cancer: No Psychosocial: No Integumentary: No Blood Disorders: No Adverse Reaction/Blood Tranf: No Family Medical History Diabetes mellitus 03 FATHER 03 MOTHER Family history: Arthritis 03 MOTHER Family history: Asthma 03 MOTHER Family history: Diabetes mellitus 03 MOTHER No Pertinent Family Hx Physical Exam Vital Signs Vital Signs - First Documented 04/09/20 18:15 Temp 36.5 Pulse 102 Resp 16 B/P (MAP) 140/75 (96) Pulse Ox 100 O2 Delivery Room Air Capillary Refill : Less Than 3 Seconds Height, Weight, BMI Height: 5'3.00" Weight: 166lbs. 2.0oz. 75.001234gr; 29.00 BMI Method:Stated General Appearance: Other Eyes: Bilateral Eye Normal Inspection, Bilateral Eye PERRL, Bilateral Eye EOMI HEENT: PERRL/EOMI, TMs Normal Neck: Full Range of Motion, Non Tender, Supple Respiratory: Lungs Clear Cardiovascular: Regular Rate, Rhythm Gastrointestinal: Soft, Tenderness (Mild suprapubic tenderness) Genital/Rectal: Other (Scant vaginal discharge minimal tenderness.) Back: Normal Inspection, No CVA Tenderness Extremity: Normal Capillary Refill Neurologic/Psychiatric: Alert, Oriented x3 Skin: Normal Color Progress/Results/Core Measures Suspected Sepsis Recent Fever Within 48 Hours: No Infection Criteria Present: None New/Unexplained Altered Menta: No Sepsis Screen: No Definite Risk SIRS Temperature: Pulse: 102 Respiratory Rate: 16 Laboratory Tests 04/09/20 18:30: White Blood Count 8.3 Blood Pressure 140 /75 Mean: 96 Laboratory Tests 04/09/20 18:30: Creatinine 0.52L, Platelet Count 412H, Total Bilirubin 0.2 Results/Orders Lab Results Laboratory Tests Test 04/09/20 18:15 04/09/20 18:30 04/09/20 20:37 Range/Units Urine Color YELLOW Urine Clarity CLEAR Urine pH 6.0 5-9 Urine Specific [place] >=1.030 1.016-1.022 Urine Protein NEGATIVE NEGATIVE Urine Glucose (UA) NEGATIVE NEGATIVE Urine Ketones TRACE H NEGATIVE Urine Nitrite NEGATIVE NEGATIVE Urine Bilirubin NEGATIVE NEGATIVE Urine Urobilinogen 0.2 < = 1.0 MG/DL Urine Leukocyte Esterase NEGATIVE NEGATIVE Urine RBC (Auto) NEGATIVE NEGATIVE Urine RBC NONE /HPF Urine WBC 0-2 /HPF Urine Squamous Epithelial Cells 5-10 /HPF Urine Crystals NONE /LPF Urine Bacteria TRACE /HPF Urine Casts NONE /LPF Urine Mucus MODERATE H /LPF Urine Culture Indicated NO White Blood Count 8.3 4.3-11.0 10^3/uL Red Blood Count 4.64 4.35-5.85 10^6/uL Hemoglobin 9.3 L 11.5-16.0 G/DL Hematocrit 32 L 35-52 % Mean Corpuscular Volume 68 L 80-99 FL Mean Corpuscular Hemoglobin 20 L 25-34 PG Mean Corpuscular Hemoglobin Concent 29 L 32-36 G/DL Red Cell Distribution Width 18.9 H 10.0-14.5 % Platelet Count 412 H 130-400 10^3/uL Mean Platelet Volume 10.2 7.4-10.4 FL Immature Granulocyte % (Auto) 0 % Neutrophils (%) (Auto) 70 42-75 % Lymphocytes (%) (Auto) 22 12-44 % Monocytes (%) (Auto) 6 0-12 % Eosinophils (%) (Auto) 2 0-10 % Basophils (%) (Auto) 0 0-10 % Neutrophils # (Auto) 5.8 1.8-7.8 X 10^3 Lymphocytes # (Auto) 1.8 1.0-4.0 X 10^3 Monocytes # (Auto) 0.5 0.0-1.0 X 10^3 Eosinophils # (Auto) 0.2 0.0-0.3 10^3/uL Basophils # (Auto) 0.0 0.0-0.1 10^3/uL Immature Granulocyte # (Auto) 0.0 0.0-0.1 10^3/uL Neutrophils % (Manual) 67 % Lymphocytes % (Manual) 19 % Monocytes % (Manual) 8 % Eosinophils % (Manual) 2 % Band Neutrophils 4 % Hypochromasia 2+ Poikilocytosis 1+ Microcytosis 3+ Elliptocytes SLIGHT Sodium Level 140 135-145 MMOL/L Potassium Level 4.2 3.6-5.0 MMOL/L Chloride Level 105 98-107 MMOL/L Carbon Dioxide Level 23 21-32 MMOL/L Anion Gap 12 5-14 MMOL/L Blood Urea Nitrogen 15 7-18 MG/DL Creatinine 0.52 L 0.60-1.30 MG/DL Estimat Glomerular Filtration Rate > 60 BUN/Creatinine Ratio 29 Glucose Level 237 H 70-105 MG/DL Calcium Level 9.4 8.5-10.1 MG/DL Corrected Calcium 9.1 8.5-10.1 MG/DL Total Bilirubin 0.2 0.1-1.0 MG/DL Aspartate Amino Transf (AST/SGOT) 14 5-34 U/L Alanine Aminotransferase (ALT/SGPT) 24 0-55 U/L Alkaline Phosphatase 81 40-136 U/L C-Reactive Protein 0.17 <0.50 MG/DL Total Protein 8.0 6.4-8.2 GM/DL Albumin 4.4 3.2-4.5 GM/DL Micro Results Microbiology 04/09/20 Wet Prep - Final, Complete My Orders Orders - KATIE CASTANO DO Urine Bedside (04/09/20 18:26) Ua Culture If Indicated (04/09/20 18:26) Cbc And Manual Diff (04/09/20 18:26) Comprehensive Metabolic Panel (04/09/20 18:26) Crp Fs (04/09/20 18:26) Ct Abdomen/Pelvis W (04/09/20 18:27) Iohexol Injection (Omnipaque 350 Mg/Ml 1 (04/09/20 19:15) Received Contrast (Hold Metformin- Contr (04/09/20 19:15) Sodium Chloride Flush (Catheter Flush Sy (04/09/20 19:15) Ns (Ivpb) (Sodium Chloride 0.9% Ivpb Bag (04/09/20 19:15) Wet Prep (04/09/20 20:38) Neisseria Gonorrhea Swab (04/09/20 20:38) Chlam Dna Probe (04/09/20 20:38) Medications Given in ED Current Medications Medications Dose Ordered Sig/Yordan Route Start Time Stop Time Status Last Admin Dose Admin Iohexol 100 ml ONCE ONCE IV 04/09/20 19:15 04/09/20 19:16 DC 04/09/20 19:20 100 ML Sodium Chloride 10 ml NEEDED PRN IV 04/09/20 19:15 04/09/20 19:20 10 ML Sodium Chloride 100 ml ONCE ONCE IV 04/09/20 19:15 04/09/20 19:16 DC 04/09/20 19:20 80 ML Vital Signs/I&O 04/09/20 18:15 Temp 36.5 Pulse 102 Resp 16 B/P (MAP) 140/75 (96) Pulse Ox 100 O2 Delivery Room Air Capillary Refill : Less Than 3 Seconds Blood Pressure Mean: 96 Departure Communication (Admissions) CT abdomen pelvis: No acute disease per radiology report Lab and imaging reviewed. 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 Will treat supportively with instructions follow-up with TELEVISION ANTENNA INSTALLER. Return precautions reviewed. Patient verbalizes understanding agreement just [facility] instructions prior to departure. Impression Primary Impression: Abdominal pain Disposition: 01 HOME, SELF-CARE Condition: Stable Departure-Patient Inst. Decision time for Depature: 21:14 Referrals: ROCCO LOPEZ APRN (PCP/Family) Primary Care Physician Patient Instructions: Abdominal Pain, Adult ED Add. Discharge Instructions: You were evaluated in the emergency department for abdominal pain. Lab and imaging studies were performed and are nondiagnostic the cause of your symptoms is not being determined. Please take newly prescribed medications and follow-up with your PCP for reevaluation. Return to the ED if new or worsening symptoms All discharge instructions reviewed with patient and/or family. Voiced unde rstanding. Scripts Dicyclomine HCl (Dicyclomine HCl) 10 Mg Capsule 10 MG PO QID, #20 CAP Prov: KATIE CASTANO DO 04/09/20 KATIE CASTANO DO Apr 09, 2020 21:08
[2020-04-09] MEDS ORDERED: DICY10CA12 PO (21:23)
[2020-04-09 21:35] VITALS: BP 130/70
== END 2020-04-09 21:35 | disposition home or self-care (01) ==
LOC: EDUNIT# 18:11 → ER FS 18:12
DX: R10.33 Periumbilical pain (principal); Z87.891 Personal history of nicotine dependence; Z83.3 Family history of diabetes mellitus; Z82.61 Family history of arthritis
CPT/HCPCS: 36415; 74177; 80053; 81000; 84703; 85007; 85027; 86141; 87210; 87491; 87591

== ENCOUNTER → 2020-11-29 | Outpatient (CLI) | payer MEDICAID ==
[~2020-11-29] MED LIST changes: +DICY10CA12 PO
--- NOTE | 2020-12-04 09:20 | Holter Monitor ---
HOLTER MONITOR DATE OF PROCEDURE: 11/29/2020. INDICATION: Palpitations. PROCEDURE: A 24-hour Holter monitor was obtained for a total of 24 hours. The study quality is adequate. RESULTS: 1. Baseline sinus rhythm with an average heart rate of 90 bpm, ranging from 57- 158 bpm. 2. There were rare (7), isolated premature supraventricular complexes. 3. There were rare (1), isolated premature ventricular complexes. 4. There were no pauses exceeding 2 seconds in duration. 5. No symptoms were reported in the patient diary. IMPRESSION: 1. This is a 24-hour Holter monitor report. 2. Baseline sinus rhythm with an average heart rate of 90 bpm, ranging from 57- 158 bpm with rare, isolated premature supraventricular and premature ventricular complexes. 3. No symptoms were reported in the patient diary. Certain portions of this document may have been dictated utilizing voice recognition technology. Inherent to this technology, typographical and grammatical errors may exist. As much as I am diligent to identify and correct these mistakes, some errors may remain in the document. ANISA MONAE JR, MD Dec 04, 2020 09:20
== END ==
LOC: CARD 13:00
PROVIDERS: ATTEND Internal Medicine Cardiovascular Disease
DX: I51.7 Cardiomegaly (principal)
CPT/HCPCS: 93225; 93226; 93306

== ENCOUNTER 2021-10-23 15:44 | Emergency (ER) | payer MEDICAID ==
[~2021-10-23] VITALS: Ht 160 cm; Wt 72.0 kg
[~2021-10-23 15:44] MED LIST changes: +DICY20TA PO; -DICY20TA10 PO
--- NOTE | 2021-10-23 15:56 | ED GU-Female ---
General Stated Complaint: VAGINAL BLOOD CLOTS History of Present Illness Date Seen by Provider: Oct 23, 2021 Time Seen by Provider: 15:56 Initial Comments 41-year-old female presents because she is currently on her menstrual cycle and reports that she has some clots that are larger than her normal clustering menstrual cycle. She had 1 yesterday it was larger 1 today larger otherwise her flow seems to be similar. Patient reports that she had her wisdom teeth out couple days ago. She has been taking ibuprofen 800 mg every 6 hours for the pain. She has some mild abdominal cramping. She has no dizziness lightheadedness or other systemic complaints Allergies and Home Medications Allergies Coded Allergies: No Known Drug Allergies (Unverified , 09/30/15) Patient Home Medication List Home Medication List Reviewed: Yes Acetaminophen (Acetaminophen) 500 Mg Tablet, 1,000 MG PO Q8HR Prescribed by: ASHLYN BOSCH on 10/26/18852 Dicyclomine HCl (Dicyclomine HCl) 10 Mg Capsule, 10 MG PO QID Prescribed by: KATIE CASTANO on 04/09/202122 Ibuprofen (Ibu) 600 Mg Tablet, 600 MG PO Q6HR Prescribed by: ASHLYN BOSCH on 10/26/1853 Metformin HCl (Metformin HCl) 500 Mg Tablet, 1,000 MG PO BID@ Prescribed by: ASHLYN BOSCH on 10/26/18 0853 Review of Systems Review of Systems Constitutional: no symptoms reported EENTM: see HPI Respiratory: no symptoms reported Cardiovascular: no symptoms reported Gastrointestinal: no symptoms reported Genitourinary: see HPI : No Musculoskeletal: no symptoms reported Skin: no symptoms reported Psychiatric/Neurological: No Symptoms Reported Endocrine: No Symptoms Reported Hematologic/Lymphatic: No Symptoms Reported Past Nnwmnru-Lcekfr-Gwfrjx Hx Immunizations Up To Date Tetanus Booster (TDap): Unknown PED Vaccines UTD: No Seasonal Allergies Seasonal Allergies: No Past Medical History Surgeries: Yes (pulmonary nodule removed) Tubal Ligation Respiratory: Yes (Solitary Pulmonary nodule) Cardiac: No Neurological: No 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 Disorders: No Female 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 Sexually Transmitted Disease: No HIV/AIDS: No Genitourinary: No Gastrointestinal: No (Hx of Hepatomegaly w/ liver dz) Musculoskeletal: Yes (Castleman's Disease) Endocrine: Yes (DM Type II) Diabetes, Insulin dep HEENT: No Loss of Vision: Denies Cancer: No Psychosocial: No Integumentary: No Blood Disorders: No Adverse Reaction/Blood Tranf: No Family Medical History Diabetes mellitus 03 FATHER 03 MOTHER Family history: Arthritis 03 MOTHER Family history: Asthma 03 MOTHER Family history: Diabetes mellitus 03 MOTHER No Pertinent Family Hx Physical Exam Vital Signs Vital Signs - First Documented 10/23/21 15:59 Temp 36.1 Pulse 102 Resp 16 B/P (MAP) 125/73 (90) Pulse Ox 99 O2 Delivery Room Air Capillary Refill : Height, Weight, BMI Height: 5'3.00" Weight: 166lbs. 2.0oz. 75.783667hi; 29.00 BMI Method:Stated General Appearance: WD/WN, no apparent distress HEENT: PERRL/EOMI Neck: full range of motion, supple Cardiovascular: normal peripheral pulses, regular rate, rhythm Respiratory: chest non-tender, lungs clear, normal breath sounds Gastrointestinal: non tender, soft Pelvic: other (Deferred) Extremities: normal range of motion, non-tender Neurologic/Psychiatric: alert, normal mood/affect, oriented x 3 Skin: normal color, warm/dry Progress/Results/Core Measures Suspected Sepsis SIRS Temperature: Pulse: Respiratory Rate: Blood Pressure / Mean: Results/Orders My Orders Orders - MONSE NEW DO Cbc No Diff (10/23/21 15:59) Hcg,Qualitative Serum (10/23/21 15:59) Vital Signs/I&O 10/23/21 15:59 Temp 36.1 Pulse 102 Resp 16 B/P (MAP) 125/73 (90) Pulse Ox 99 O2 Delivery Room Air Capillary Refill : Progress Note : Progress Note Nurse went to draw blood to check her hemoglobin level. When nurse went in to draw blood patient was not in her room. This was just shortly after I left her room with a plan to check her hemoglobin and a test. Patient did not give a reason for leaving her no indication of anything. She was stable when she was evaluated in the room. Departure Impression Primary Impression: Abnormal bleeding in menstrual cycle Disposition: AGAINST MEDICAL ADVICE Condition: Stable Departure-Patient Inst. Referrals: PETER PENDLETON MD (PCP/Family) Primary Care Physician MONSE NEW DO Oct 23, 2021 15:56
[2021-10-23 15:59] VITALS: BP 125/73
== END 2021-10-23 16:15 | disposition left against medical advice (07) ==
LOC: EDUNIT# 15:44 → ER FS 15:45
DX: N93.9 Abnormal uterine and vaginal bleeding, unspecified (principal); E11.9 Type 2 diabetes mellitus without complications; Z79.2 Long term (current) use of antibiotics
CPT/HCPCS: 99282

== ENCOUNTER 2021-10-23 17:00 | Emergency (ER) | payer MEDICAID ==
[~2021-10-23] VITALS: Ht 160 cm; Wt 92.6 kg
[2021-10-23 17:42] LABS: BASOPHILS % (AUTO) 0 % (0-10); EOSINOPHILS # (AUTO) 0.1 10^3/uL (0.0-0.3); EOSINOPHILS % (AUTO) 2 % (0-10); HEMATOCRIT 27 % (35-52); LYMPHOCYTES # (AUTO) 1.4 10^3/uL (1.0-4.0); LYMPHOCYTES % (AUTO) 21 % (12-44); MEAN CORPUSCULAR HEMOGLOBIN 21 pg (25-34); MEAN CORPUSCULAR HGB CONC 30 g/dL (32-36); MEAN CORPUSCULAR VOLUME 71 fL (80-99); MEAN PLATELET VOLUME 10.1 fL (9.0-12.2); MONOCYTES # (AUTO) 0.5 10^3/uL (0.0-1.0); MONOCYTES % (AUTO) 7 % (0-12); NEUTROPHILS # (AUTO) 4.6 10^3/uL (1.8-7.8); NEUTROPHILS % (AUTO) 70 % (42-75); PLATELET COUNT 348 10^3/uL (130-400); WHITE BLOOD COUNT 6.7 10^3/uL (4.3-11.0)
--- NOTE | 2021-10-23 17:45 | ED GU-Female ---
General Chief Complaint: - 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 Stated Complaint: BLOOD CLOT Nursing Triage Note: PT AMB TO ED BY POV WITH C/O BLEEDING. 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 REPORTS NORMAL CRAMPING, RATES PAIN 7/10. DENIES DIZZINESS OR CARUSO. Source: patient Exam Limitations: no limitations (NERIS SLOAN) History of Present Illness Date Seen by Provider: Oct 23, 2021 Time Seen by Provider: 17:20 Initial Comments Patient to the ER by private conveyance from [place] [facility] where she left AMA stating she did not feel like they were going to help her. Patient states she started having some heavy blood flow a large and recorder last night and it got larger to the size of a chicken egg or a little bit bigger this morning. She says she is been wearing adult briefs and has gone through 4 of them today already. She has regular periods although she has heavy bleeding and has been told in the past she is anemic and was taking iron pills at one point. She had her last menstrual cycle prior to this 1 month ago. She is had her tubes tied a few years ago. She does not follow with a cleaner and presser or do Pap smears r outinely. Her last intercourse in the vagina was a few weeks ago. 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 It has reformed since then on imaging and she has had radiation therapy under the care of Dr. Murray, oncology. She is not utilizing any chemotherapy or monoclonal antibodies. She is not having any chest pain or shortness of air with exertion. She has not had her labs checked recently but she does follow routinely with [facility] at [facility] in [place]. She is on metformin and long-acting insulin for diabetes type 2. She did have a D&C and 8 years ago after a miscarriage. She does not routinely follow with a cleaner and presser. (NERIS SLOAN) Allergies and Home Medications Allergies Coded Allergies: No Known Drug Allergies (Unverified , 09/30/15) Patient Home Medication List Home Medication List Reviewed: Yes (NERIS SLOAN) Acetaminophen (Acetaminophen) 500 Mg Tablet, 1,000 MG PO Q8HR Prescribed by: ASHLYN BOSCH on 10/26/18 0872 Dicyclomine HCl (Dicyclomine HCl) 10 Mg Capsule, 10 MG PO QID Prescribed by: KATIE CASTANO on 04/09/202122 Ibuprofen (Ibu) 600 Mg Tablet, 600 MG PO Q6HR Prescribed by: ASHLYN BOSCH on 10/26/18 08 Metformin HCl (Metformin HCl) 500 Mg Tablet, 1,000 MG PO BID@ Prescribed by: ASHLYN BOSCH on 10/26/18 0853 Review of Systems Review of Systems Constitutional: No chills, No diaphoresis EENTM: No ear discharge, No ear pain Respiratory: No cough, No short of breath Cardiovascular: No Hx of Intervention, No palpitations Gastrointestinal: No abdominal pain, No nausea, No vomiting Genitourinary: see HPI (Menstrual cramping); denies burning, denies discharge Musculoskeletal: No back pain, No joint pain (NERIS SLOAN) All Other Systemes Reviewed Negative Unless Noted: Yes (NERIS SLOAN) Past Yqjzbpq-Auierb-Qmiref Hx Patient Social History Tobacco Use?: No Use of E-Cig and/or Vaping dev: No Substance use?: No Alcohol Use?: No Pt feels they are or have been: No (NERIS SLOAN) Immunizations Up To Date Tetanus Booster (TDap): Unknown PED Vaccines UTD: No Influenza Vaccine Up-to-Date: No; Not Current (NERIS SLOAN) Seasonal Allergies Seasonal Allergies: No (NERIS SLOAN) Past Medical History Surgery/Hospitalization HX: DM 2 TUBAL Surgeries: Yes (pulmonary nodule removed) Tubal Ligation Respiratory: Yes (Solitary Pulmonary nodule) Cardiac: No Neurological: No 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 Disorders: No Female 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 Sexually Transmitted Disease: No HIV/AIDS: No Genitourinary: No Gastrointestinal: No (Hx of Hepatomegaly w/ liver dz) Musculoskeletal: Yes (Castleman's Disease) Endocrine: Yes (DM Type II) Diabetes, Insulin dep HEENT: No Loss of Vision: Denies Cancer: No Psychosocial: No Integumentary: No Blood Disorders: No Adverse Reaction/Blood Tranf: No (NERIS SLOAN) Family Medical History Diabetes mellitus 03 FATHER 03 MOTHER Family history: Arthritis 03 MOTHER Family history: Asthma 03 MOTHER Family history: Diabetes mellitus 03 MOTHER No Pertinent Family Hx (NERIS SLOAN) Physical Exam Vital Signs Vital Signs - First Documented 10/23/21 17:05 Temp 36.8 Pulse 94 Resp 18 B/P (MAP) 135/89 (104) Pulse Ox 98 O2 Delivery Room Air (NANCY BEAVER DO) Vital Signs Capillary Refill : Less Than 3 Seconds (NERIS SLOAN) Height, Weight, BMI Height: 5'3.00" Weight: 166lbs. 2.0oz. 75.001282rf; 36.00 BMI Method:Stated General Appearance: WD/WN, no apparent distress HEENT: PERRL/EOMI, pharynx normal Neck: full range of motion, normal inspection Cardiovascular: normal peripheral pulses, regular rate, rhythm Respiratory: no respiratory distress, no accessory muscle use Gastrointestinal: normal bowel sounds, non tender, soft, no organomegaly Extremities: normal range of motion, non-tender, normal capillary refill Neurologic/Psychiatric: alert, normal mood/affect Skin: normal color, warm/dry (NERIS SLOAN) Pelvic: normal external exam, normal adnexa, no cerv. motion tender, no masses, vaginal bleeding (Scant vaginal bleeding. Normal os that is closed) (NANCY BEAVER DO) Progress/Results/Core Measures Suspected Sepsis SIRS Temperature: Pulse: 94 Respiratory Rate: 18 Laboratory Tests 10/23/21 17:36: Blood Pressure 135 /89 Mean: 104 Laboratory Tests 10/23/21 17:36: (NERIS SLOAN) Results/Orders Lab Results Laboratory Tests Test 10/23/21 17:36 10/23/21 17:55 Range/Units White Blood Count 6.7 4.3-11.0 10^3/uL Red Blood Count 3.74 L 3.80-5.11 10^6/uL Hemoglobin 8.0 L 11.5-16.0 g/dL Hematocrit 27 L 35-52 % Mean Corpuscular Volume 71 L 80-99 fL Mean Corpuscular Hemoglobin 21 L 25-34 pg Mean Corpuscular Hemoglobin Concent 30 L 32-36 g/dL Red Cell Distribution Width 16.4 H 10.0-14.5 % Platelet Count 348 130-400 10^3/uL Mean Platelet Volume 10.1 9.0-12.2 fL Immature Granulocyte % (Auto) 0 % Neutrophils (%) (Auto) 70 42-75 % Lymphocytes (%) (Auto) 21 12-44 % Monocytes (%) (Auto) 7 0-12 % Eosinophils (%) (Auto) 2 0-10 % Basophils (%) (Auto) 0 0-10 % Neutrophils # (Auto) 4.6 1.8-7.8 10^3/uL Lymphocytes # (Auto) 1.4 1.0-4.0 10^3/uL Monocytes # (Auto) 0.5 0.0-1.0 10^3/uL Eosinophils # (Auto) 0.1 0.0-0.3 10^3/uL Basophils # (Auto) 0.0 0.0-0.1 10^3/uL Immature Granulocyte # (Auto) 0.0 0.0-0.1 10^3/uL Prothrombin Time 12.2 12.2-14.7 SEC INR Comment 0.9 0.8-1.4 Activated Partial Thromboplast Time 25 24-35 SEC Sodium Level 140 135-145 MMOL/L Potassium Level 3.7 3.6-5.0 MMOL/L Chloride Level 107 98-107 MMOL/L Carbon Dioxide Level 20 L 21-32 MMOL/L Anion Gap 13 5-14 MMOL/L Blood Urea Nitrogen 8 7-18 MG/DL Creatinine 0.61 0.60-1.30 MG/DL Estimat Glomerular Filtration Rate 115 BUN/Creatinine Ratio 13 Glucose Level 209 H 70-105 MG/DL Calcium Level 8.9 8.5-10.1 MG/DL Corrected Calcium 8.9 8.5-10.1 MG/DL Total Bilirubin 0.2 0.1-1.0 MG/DL Aspartate Amino Transf (AST/SGOT) 14 5-34 U/L Alanine Aminotransferase (ALT/SGPT) 28 0-55 U/L Alkaline Phosphatase 62 40-136 U/L Total Protein 6.9 6.4-8.2 GM/DL Albumin 4.0 3.2-4.5 GM/DL Urine Color YELLOW Urine Clarity CLEAR Urine pH 5.5 5-9 Urine Specific Rake >=1.030 1.016-1.022 Urine Protein NEGATIVE NEGATIVE Urine Glucose (UA) TRACE H NEGATIVE Urine Ketones TRACE H NEGATIVE Urine Nitrite NEGATIVE NEGATIVE Urine Bilirubin NEGATIVE NEGATIVE Urine Urobilinogen 0.2 < = 1.0 MG/DL Urine Leukocyte Esterase NEGATIVE NEGATIVE Urine RBC (Auto) 3+ H NEGATIVE Urine RBC 5-10 H /HPF Urine WBC NONE /HPF Urine Squamous Epithelial Cells RARE /HPF Urine Crystals NONE /LPF Urine Bacteria TRACE /HPF Urine Casts NONE /LPF Urine Mucus SMALL H /LPF Urine Culture Indicated NO (SDNANCYARIA Mishra DO) Vital Signs/I&O 10/23/21 17:05 Temp 36.8 Pulse 94 Resp 18 B/P (MAP) 135/89 (104) Pulse Ox 98 O2 Delivery Room Air (SDNANCY L DO) Vital Signs/I&O Capillary Refill : Less Than 3 Seconds (NERIS SLOAN) Blood Pressure Mean: 104 Progress Note : Time: 17:50 Progress Note Plan to do a pelvic exam. Ultrasound is not available at this time. We will check her labs including a PT, PTT, CBC and address this appropriately. She is not in any acute distress and has a septic vital signs. We will then help her set up contact with a cleaner and presser for further work-up as appropriate. (NERIS SLOAN) Departure Communication (Admissions) Patient is hemodynamically stable. Her hemoglobin is slightly decreased from previous, likely due to heavy vaginal bleeding. On exam she has some scant bleeding currently. She is not dizzy or lightheaded or short of breath at this time. No indication for blood transfusion. She will be given gynecology referral and strict return precautions. She is comfortable agreeable current plan of care discharged in stable condition (NANCY BEAVER DO) Impression Primary Impression: Dysfunctional uterine bleeding Additional Impression: Anemia Qualified Codes: D64.9 - Anemia, unspecified Disposition: 01 HOME, SELF-CARE Condition: Stable Departure-Patient Inst. Referrals: PETER PENDLETON MD (PCP) Primary Care Physician ELKIN ELMORE DO Patient Instructions: Heavy Periods Add. Discharge Instructions: Please call Dr. Elmore to schedule an appointment. You have previously seen Dr. Lackey however she is no longer with our system. Return to the emergency department if you have any dizziness, lightheadedness or shortness of breath. Please see the cleaner and presser in the next 2 to 3 days. All discharge instructions reviewed with patient and/or family. Voiced understanding. NERIS SLOAN Oct 23, 2021 17:45 NANCY BEAVER DO Oct 23, 2021 18:36
[2021-10-23 17:55] LABS: POTASSIUM 3.7 MMOL/L (3.6-5.0)
[2021-10-23 17:56] LABS: CALCIUM 8.9 MG/DL (8.5-10.1); INR 0.9 (0.8-1.4); PROTHROMBIN TIME PATIENT 12.2 SEC (12.2-14.7)
[2021-10-23 17:57] LABS: TOTAL PROTEIN 6.9 GM/DL (6.4-8.2)
[2021-10-23 17:59] LABS: BILIRUBIN,TOTAL 0.2 MG/DL (0.1-1.0)
[2021-10-23 18:01] LABS: BILIRUBIN,URINE NEGATIVE (NEGATIVE); CLARITY,URINE CLEAR; COLOR,URINE YELLOW; GLUCOSE, URINE (UA) TRACE (NEGATIVE); KETONES,URINE TRACE (NEGATIVE); LEUKOCYTE ESTERASE ,URINE NEGATIVE (NEGATIVE); NITRITE,URINE NEGATIVE (NEGATIVE); PH,URINE 5.5 (5-9); PROTEIN,URINE NEGATIVE (NEGATIVE)
[2021-10-23 18:01] LABS: CREATININE SERUM 0.61 MG/DL (0.60-1.30)
[2021-10-23 18:14] LABS: BACTERIA,URINE TRACE /HPF; SQUAMOUS EPITHELIAL CELL,UR RARE /HPF
[2021-10-23 18:42] VITALS: BP 134/79
== END 2021-10-23 18:42 | disposition home or self-care (01) ==
LOC: EDUNIT# 17:00 → ER 17:02
DX: N93.8 Other specified abnormal uterine and vaginal bleeding (principal); D64.9 Anemia, unspecified; E11.9 Type 2 diabetes mellitus without complications; Z28.310 Unvaccinated for COVID-19; Z79.4 Long term (current) use of insulin
CPT/HCPCS: 36415; 80053; 81000; 84703; 85025; 85610; 85730

== ENCOUNTER 2022-01-30 09:09 | Outpatient (RCR) | payer MEDICAID ==
[2022-01-20 09:40] VITALS: BP 119/71
[2022-01-20] MEDS: IRON SUCROSE INJECTION 200 MG in NS (IVPB) 100 ML IV SCH (09:49)
[2022-01-22] MEDS: IRON SUCROSE INJECTION 200 MG in NS (IVPB) 100 ML IV SCH (09:00)
[2022-01-22 09:32] VITALS: BP 114/66
[2022-01-24] MEDS: IRON SUCROSE INJECTION 200 MG in NS (IVPB) 100 ML IV SCH (08:55)
[2022-01-24 09:23] VITALS: BP 113/60
[2022-01-27 08:40] VITALS: BP 112/71
[2022-01-27] MEDS: IRON SUCROSE INJECTION 200 MG in NS (IVPB) 100 ML IV SCH (08:42)
[~2022-01-30] VITALS: Ht 167 cm; Wt 70.9 kg
[2022-01-30] MEDS ORDERED: IRON SUCROSE INJECTION 200 MG in NS (IVPB) 100 ML IV SCH (09:30)
[2022-01-30 09:32] VITALS: BP 118/58
== END 2022-02-08 | disposition home or self-care (01) ==
LOC: SDC 09:09
PROVIDERS: ATTEND Allergy & Immunology
DX: D50.9 Iron deficiency anemia, unspecified (principal); D64.9 Anemia, unspecified
CPT/HCPCS: 96365

== ENCOUNTER 2022-08-20 11:20 | Emergency (ER) | payer MEDICAID ==
[~2022-08-20] VITALS: Ht 160 cm; Wt 65.7 kg
[2022-08-20 11:28] VITALS: BP 122/72
[2022-08-20] MEDS ORDERED: ACETAMINOPHEN 500 MG TAB (TYLENOL) PO ONE (12:00)
--- NOTE | 2022-08-20 12:07 | ED Lower Extremity ---
General Chief Complaint: Lower Extremity Stated Complaint: LT FOOT INJ ON 08/15/22 Nursing Triage Note: Patient states she fell on Thursday while carrying feed buckets. Patient states she went to [facility] and had an Xray done. Patient states she broke a bone in her Lt. foot. Patient was placed in an Ortho shoe. Patient states she is supposed to follow-up Ortho and states she is waiting on the phone call for that appointment. Patient states she is here today to get pain medication and have her foot checked. Source: patient Exam Limitations: no limitations History of Present Illness Date Seen by Provider: Aug 20, 2022 Time Seen by Provider: 11:28 Initial Comments 42-year-old female presents to the ER with complaints of left foot pain. She states that she broke it last week on August 15 due to a fall at work. She was seen at [facility] in [place] and received an x-ray which showed a broken fifth metatarsal. They placed her in a postop shoe. She is here because she continues to have pain even though she has been taking 800 mg of ibuprofen every 6 hours. Patient educated on the correct dosage of ibuprofen. She has not taken any Tylenol. She is waiting for a phone call back from orthopedics to schedule a follow-up appointment. Allergies and Home Medications Allergies Coded Allergies: No Known Drug Allergies (Unverified , 09/30/15) Patient Home Medication List Home Medication List Reviewed: Yes Acetaminophen (Acetaminophen) 500 Mg Tablet, 1,000 MG PO Q8HR Prescribed by: ASHLYN BOSCH on 10/26/18 0853 Dicyclomine HCl (Dicyclomine HCl) 10 Mg Capsule, 10 MG PO QID Prescribed by: KATIE CASTANO on 04/09/202122 Ibuprofen (Ibu) 600 Mg Tablet, 600 MG PO Q6HR Prescribed by: ASHLYN BOSCH on 10/26/18 0853 Metformin HCl (Metformin HCl) 500 Mg Tablet, 1,000 MG PO BID@ Prescribed by: ASHLYN BOSCH on 10/26/18 0853 Tramadol HCl (Tramadol HCl) 50 Mg Tablet, 50 MG PO Q6H PRN for PAIN Prescribed by: Latasha Lay on 08/20/22 1233 Review of Systems Constitutional: see HPI Past Kwsgijy-Pndzdj-Jkgnvw Hx Patient Social History Tobacco Use?: No Use of E-Cig and/or Vaping dev: No Substance use?: No Alcohol Use?: No Immunizations Up To Date Tetanus Booster (TDap): Unknown PED Vaccines UTD: No Seasonal Allergies Seasonal Allergies: No Past Medical History Surgery/Hospitalization HX: DM 2 TUBAL Surgeries: Yes (pulmonary nodule removed) Tubal Ligation Respiratory: Yes (Solitary Pulmonary nodule) Cardiac: No Neurological: No Last Menstrual Period: Aug 15, 2022 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 Disorders: No Female 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 Disorders: 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 Sexually Transmitted Disease: No HIV/AIDS: No Genitourinary: No Gastrointestinal: No (Hx of Hepatomegaly w/ liver dz) Musculoskeletal: Yes (Castleman's Disease) Endocrine: Yes (DM Type II) Diabetes, Insulin dep HEENT: No Loss of Vision: Denies Cancer: No Psychosocial: No Integumentary: No Blood Disorders: No Adverse Reaction/Blood Tranf: No Family Medical History Diabetes mellitus 03 FATHER 03 MOTHER Family history: Arthritis 03 MOTHER Family history: Asthma 03 MOTHER Family history: Diabetes mellitus 03 MOTHER No Pertinent Family Hx Physical Exam Vital Signs Vital Signs - First Documented 08/20/22 11:28 Temp 36.4 Pulse 81 Resp 12 B/P (MAP) 122/72 (89) O2 Delivery Room Air Capillary Refill : Height, Weight, BMI Height: 5'3.00" Weight: 166lbs. 2.0oz. [id number]; 25.00 BMI Method:Stated General Appearance: WD/WN, no apparent distress Neck: supple Cardiovascular: regular rate, rhythm Respiratory: lungs clear, normal breath sounds, no accessory muscle use Feet: left foot normal inspection, left foot pain, left foot other (Sensation intact distally, cap refill less than 2 seconds, pulses intact) Neurologic/Psychiatric: alert, normal mood/affect Skin: normal color, warm/dry Progress/Results/Core Measures Results/Orders My Orders Orders - LATASHA LAY APRN Acetaminophen Tablet (Tylenol Tablet) (08/20/22 12:00) Medications Given in ED Current Medications Medications Dose Ordered Sig/Yordan Route Start Time Stop Time Status Last Admin Dose Admin Acetaminophen 1,000 mg ONCE ONCE PO 08/20/22 12:00 08/20/22 12:01 DC 08/20/22 12:04 1,000 MG Vital Signs/I&O 7/12/23 11:28 Temp 36.4 Pulse 81 Resp 12 B/P (MAP) 122/72 (89) O2 Delivery Room Air Blood Pressure Mean: 89 Progress Progress Note : Progress Note Patient seen and evaluated, resting comfortably in bed, no acute distress. I called [facility] in [place] to get the radiology report and x-ray images of patient's foot. Will give Tylenol at this time, patient drove to the ER. 1210 x-ray report from [facility] shows an acute obliquely oriented mildly comminuted and slightly displaced fracture of the distal fifth metatarsal. [address] Tian, orthopedics. He recommends a walking boot with weightbearing as tolerated. Will replace patient's postop shoe with a walking boot. Will prescribe crutches. Plan of care discussed with patient. I will also prescribe a short course of tramadol. Discharge instructions and return pr ecautions provided. Departure Impression Primary Impression: Metatarsal bone fracture Qualified Codes: S92.352D - Displaced fracture of fifth metatarsal bone, left foot, subsequent encounter for fracture with routine healing Disposition: HOME, SELF-CARE Condition: Stable Departure-Patient Inst. Decision time for Depature: 12:29 Referrals: PETER PENDLETON MD (PCP/Family) Primary Care Physician Patient Instructions: Foot Fracture ED Add. Discharge Instructions: Take tramadol as needed for pain, be careful because it can make you sleepy. Do not drive or operate machinery when taking. You may take 800 mg of ibuprofen every 8 hours with food as needed for pain. You may also take 1000 mg of Tylenol every 8 hours as needed for pain. You can walk on your foot as tolerated. Use the crutches if needed. Follow-up with orthopedics. Return for severe pain, numbness or tingling in your foot, or any other new, concerning, or worsening symptoms. All discharge instructions reviewed with patient and/or family. Voiced understanding. Scripts Tramadol HCl (Tramadol HCl) 50 Mg Tablet 50 MG PO Q6H PRN for PAIN, #15 TAB 0 Refills Prov: LATASHA LAY APRN 08/20/22 LATASHA LAY APRN Aug 20, 2022 12:07
[2022-08-20] MEDS ORDERED: TRM50T PO (12:32)
== END 2022-08-20 12:37 | disposition home or self-care (01) ==
LOC: EDUNIT# 11:20 → ER 11:24
DX: S92.352D Displaced fracture of fifth metatarsal bone, left foot, subsequent encounter for fracture with routine healing (principal); E11.9 Type 2 diabetes mellitus without complications; Z79.4 Long term (current) use of insulin; Z28.310 Unvaccinated for COVID-19; W18.30XD Fall on same level, unspecified, subsequent encounter; Y92.59 Other trade areas as the place of occurrence of the external cause; Y99.0 Civilian activity done for income or pay
CPT/HCPCS: 99283; L2114

== ENCOUNTER 2022-12-22 22:07 | Emergency (ER) | payer MEDICAID ==
[~2022-12-22] VITALS: Ht 160 cm; Wt 69.8 kg
[~2022-12-22 22:07] MED LIST changes: +DICY-11 PO; -DICY10CA12 PO
--- NOTE | 2022-12-22 22:25 | ED General ---
General Chief Complaint: General Problems/Pain Stated Complaint: BLEEDING SORE INSIDE MOUTH, COVID +, BLOATING Source of Information: Patient Exam Limitations: No Limitations History of Present Illness Date Seen by Provider: Dec 22, 2022 Time Seen by Provider: 22:25 Initial Comments Patient is a 42-year-old female who presents to the emergency department with a chief complaint of concern for abdominal bloating, cramping and gas as well as bleeding from her lower lip this evening. Patient states that she started feeling ill with congestion and cough on Thursday, 4 days ago. She tested p ositive for COVID and was started on Molnupirovir today. She had 2 doses today. She is a type II diabetic on oral medications as well as insulin. 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 She would be considered immunocompromised. She denies fevers, chills, shortness of breath. She had a normal bowel movement after the cramping. No blood in her stool. No blood in her urine. She denies any other rashes. No bloody nose or bleeding from her gums. She is not on blood thinners. Timing/Duration: 1 Hour Severity: Mild Associated Systoms: Other (abdominal bloating) Allergies and Home Medications Allergies Coded Allergies: No Known Drug Allergies (Unverified , 09/30/15) Patient Home Medication List Home Medication List Reviewed: Yes Acetaminophen (Acetaminophen) 500 Mg Tablet, 1,000 MG PO Q8HR Prescribed by: ASHLYN BOSCH on 10/26/18 0853 Dicyclomine HCl (Dicyclomine HCl) 10 Mg Capsule, 10 MG PO QID Prescribed by: KATIE CASTANO on 04/09/202122 Ibuprofen (Ibu) 600 Mg Tablet, 600 MG PO Q6HR Prescribed by: ASHLYN BOSCH on 10/26/18 0853 Metformin HCl (Metformin HCl) 500 Mg Tablet, 1,000 MG PO BID@ Prescribed by: ASHLYN BOSCH on 10/26/18 0853 Tramadol HCl (Tramadol HCl) 50 Mg Tablet, 50 MG PO Q6H PRN for PAIN Prescribed by: Latasha Garcia on 08/20/22 1233 Review of Systems Review of Systems Constitutional: see HPI EENTM: other (bleeing left lower lip) Respiratory: no symptoms reported Cardiovascular: no symptoms reported Gastrointestinal: other (bloating and gas) Genitourinary: no symptoms reported Musculoskeletal: no symptoms reported Skin: no symptoms reported Past Txtvtwh-Iohxvi-Ychtyj Hx Immunizations Up To Date Tetanus Booster (TDap): Unknown PED Vaccines UTD: No Seasonal Allergies Seasonal Allergies: No Past Medical History Surgery/Hospitalization HX: DM 2 TUBAL Surgeries: Yes (pulmonary nodule removed) Tubal Ligation Respiratory: Yes (Solitary Pulmonary nodule) Cardiac: No Neurological: No 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 Disorders: No Female 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 Sexually Transmitted Disease: No HIV/AIDS: No Genitourinary: No Gastrointestinal: No (Hx of Hepatomegaly w/ liver dz) Musculoskeletal: Yes (Castleman's Disease) Endocrine: Yes (DM Type II) Diabetes, Insulin dep HEENT: No Loss of Vision: Denies Cancer: No Psychosocial: No Integumentary: No Blood Disorders: No Adverse Reaction/Blood Tranf: No Family Medical History Diabetes mellitus 03 FATHER 03 MOTHER Family history: Arthritis 03 MOTHER Family history: Asthma 03 MOTHER Family history: Diabetes mellitus 03 MOTHER No Pertinent Family Hx Physical Exam Vital Signs Vital Signs - First Documented 12/22/22 22:18 Temp 36.2 Pulse 90 Resp 18 B/P (MAP) 148/96 (113) Pulse Ox 98 O2 Delivery Room Air Capillary Refill : Height, Weight, BMI Height: 5'3.00" Weight: 166lbs. 2.0oz. 75.438346le; 25.00 BMI Method:Stated General Appearance: No Apparent Distress, WD/WN Eyes: Bilateral Eye Normal Inspection, Bilateral Eye PERRL, Bilateral Eye EOMI HEENT: PERRL/EOMI, Pharynx Normal, Moist Mucous Membranes, Other (left lower lip, small area of denuded skin on the mucosal surface. not erythematous. no active bleeding. Not sweollen or inflammed appearing.) Neck: Supple Respiratory: Lungs Clear, Normal Breath Sounds, No Accessory Muscle Use, No Respiratory Distress Cardiovascular: Regular Rate, Rhythm Gastrointestinal: Normal Bowel Sounds, Soft Extremity: Normal Inspection, Normal Range of Motion Neurologic/Psychiatric: Alert, Oriented x3, No Motor/Sensory Deficits, Normal Mood/Affect Skin: Normal Color, Warm/Dry Progress/Results/Core Measures Suspected Sepsis SIRS Temperature: Pulse: Respiratory Rate: Blood Pressure / Mean: Results/Orders Vital Signs/I&O 12/22/22 22:18 Temp 36.2 Pulse 90 Resp 18 B/P (MAP) 148/96 (113) Pulse Ox 98 O2 Delivery Room Air Capillary Refill : Progress Note : Time: 22:44 Progress Note Patient seen and evaluated by me. Evaluation today includes history and physical exam. Pertinent physical exam findings include well-developed well- nourished female in no acute distress, small area of denuded skin on the mucosal surface of her left lower lip. No active bleeding. No surrounding erythema, no evidence of infectious process. No other concerns on intraoral examination. Ab mejía is soft, nontender with positive bowel sounds. The rest of her exam is unremarkable. Differential diagnosis includes medication side effect, direct lip injury due to trauma either from food or lip biting, chapped lips, symptoms of COVID I did some reading on the molnupirovir and found no evidence of skin reaction and dosing. Low clinical concern for this as a reaction to this medication. I think her abdominal bloating and discomfort is likely more related to the ongoing COVID infection. The patient asked if there would be any potential problem with discontinuing this medication and I advised her no but that it was provided to her as she is somewhat immunocompromised with her history of lung tumor and type 2 diabetes. The patient indicated to me that she felt like she would go ahead and stop it. She has no significant symptoms of shortness of breath, low oxygen saturations, severe headache, fever, tachycardia. Reassurance is provided. She is comfortable with the plan of care. All q uestions are sought and answered. Patient is stable for discharge. Departure Impression Primary Impression: Lip lesion Additional Impressions: Abdominal bloating COVID-19 virus infection Disposition: HOME, SELF-CARE Condition: Stable Departure-Patient Inst. Decision time for Depature: 22:55 Referrals: PETER PENDLETON MD (PCP/Family) Primary Care Physician Patient Instructions: Mouth sores Add. Discharge Instructions: Monitor the area of your lip that was irritated earlier this evening. You might apply some good Chapstick to the area to keep it moist and protected. If you notice any return of bleeding, apply direct pressure for 5 minutes or longer. Cold, icy compresses can help if you develop bleeding again. You can use an nvan-wfz-vrvmnxr "gas relief" medication for the abdominal bloating. Return to the emergency department for any new, concerning or emergent complaints. NICK CARTER MD Dec 22, 2022 22:25
[2022-12-22 23:02] VITALS: BP 148/96
== END 2022-12-22 23:02 | disposition home or self-care (01) ==
LOC: EDUNIT# 22:07 → ER 22:11
DX: U07.1 COVID-19 (principal); K13.0 Diseases of lips; R14.0 Abdominal distension (gaseous); E11.65 Type 2 diabetes mellitus with hyperglycemia; Z79.84 Long term (current) use of oral hypoglycemic drugs; Z79.4 Long term (current) use of insulin
CPT/HCPCS: 99281